=== PATIENT | female | born 1940 | race Caucasian/White ===

== ENCOUNTER 2020-02-27 15:57 | Inpatient (IN) | payer OTHER, MEDICAID, SELFPAY ==
[~2020-02-27] VITALS: Ht 152.4 cm; Wt 42.2 kg
--- NOTE | 2020-02-27 16:01 | NUR ---
Placed in room 06 . Placed on monitoring specialist, blood pressure machine and pulse oximeter. To gown for exam. Side rails up.
--- NOTE | 2020-02-27 16:10 | NUR ---
Pt brought to ER for gen weakness and SOB. Pt unresponsive shortly after arrival ACLS protocol initiated.
[2020-02-27] MEDS ORDERED: NS 500 ML IV ONE (16:15)
--- NOTE | 2020-02-27 16:23 | NUR ---
Patient not known to be of DNR status. Patient medicated with 20 mg of ETOMIDATE AND 20MG ROCURONIUM for sedation prior to placement of ET tube. Respiratory therapy at bedside prior to placement. Size 7.5 ET tube placed by MD. Cuff inflated with 10 cc air. Auscultation of breath sounds over bilateral chest wall. ET tube secured with PLACEMENT DEVICE PER RT. O2 sats 100% pulse ox. PCXR ordered to check tube placement.
[2020-02-27 16:29] VITALS: BP_SYST 62
--- NOTE | 2020-02-27 16:30 | NUR ---
ER at bedside examining patient.
--- NOTE | 2020-02-27 16:30 | NUR ---
Pt in [facility] at this time, sedated and intubated. brought in for weakness and failure to thrive. Pt currently GCS 3 due to sedation, at bedside, pt hypotensive with IV fluids running
[2020-02-27] MEDS ORDERED: DOPamine PREMIX 250 ML IV ONE ×3 (16:47→22:25)
[2020-02-27] MEDS ORDERED: DEXAMETHASONE SOD PHOSPHATE 10 MG/ML VIAL IVP ONE (17:00)
[2020-02-27] MEDS ORDERED: cefTRIAXone 1 GM in D5W 50 ML IV ONE (17:00)
[2020-02-27] MEDS ORDERED: AZITHROMYCIN 500 MG in NS 250 ML IV ONE (17:00)
--- NOTE | 2020-02-27 17:00 | NUR ---
Dopamine began at mcg/kcg will monitor pt and titrate per protocol
--- NOTE | 2020-02-27 17:05 | NUR ---
Dopamine titrateed up to 10mcg/kcg Addendum: 02/28/20 at 0729 by SDEDDW Dopamine titrateed up to 10mcg/kcg, BP 86/44, P 131, O2 100%
[2020-02-27] MEDS ORDERED: cefTRIAXone 1 GM VIAL ONE (17:09)
[2020-02-27] MEDS ORDERED: AZITHROMYCIN 500 MG/VIAL (ZITHROMAX) IV ONE (17:10)
--- NOTE | 2020-02-27 17:10 | NUR ---
Dopamine titrateed up to 15mcg/kcg Addendum: 02/28/20 at 0731 by SDEDDW Dopamine titrated up to 15mcg/kcg BP 70/31, P126, O2 99%
--- NOTE | 2020-02-27 17:15 | NUR ---
Dopamine titrated up to 20mcg/kcg Addendum: 02/28/20 at 0732 by SDEDDW Dopamine titrateed up to 20mcg/kcg BP 93/38, P126, O2 99%
[2020-02-27 17:57] LABS: ANION GAP 14 (5-15); CREATININE 3.64 mg/dL (0.55-1.30); GLUCOSE 257 mg/dL (70-99); MEAN CORPUSCULAR HEMOGLOBIN 31 pg (27-31); MEAN CORPUSCULAR HGB CONC 31 % (32-36); MEAN CORPUSCULAR VOLUME 103 fL (79.0-98.0); PLATELET COUNT (AUTO) 159 K/uL (130-430); RED CELL DISTRIBUTION WIDTH 15.3 % (9.0-15.0); SODIUM SERUM 147 mmol/L (136-145); WHITE BLOOD COUNT (AUTO) 12.1 K/uL (4.8-10.8)
--- NOTE | 2020-02-27 17:58 | NUR ---
Spoke with family, they will be arriving for end of life visitation once daughter is off of work at 1900.
[2020-02-27 18:03] LABS: CHLORIDE 120 mmol/L (98-107); INR 1.2 (0.8-1.2); PROTHROMBIN TIME 12.4 SECS (9.5-12.5)
[2020-02-27 18:07] LABS: CALCIUM 6.9 mg/dL (8.4-11.0); POTASSIUM 6.4 mmol/L (3.5-5.1)
[2020-02-27 18:08] LABS: UREA NITROGEN, BLOOD 102 mg/dL (8-21)
[2020-02-27 18:09] LABS: RED BLOOD CELL COUNT(AUTO) 1.91 MIL/uL (4.2-6.2)
[2020-02-27 18:10] LABS: ALANINE AMINOTRANSFERASE 448 U/L (12-78); ALBUMIN 1.7 g/dL (3.4-4.8); ASPARTATE AMINOTRANSFERASE 759 U/L (10-37); HEMATOCRIT 19.6 % (36-48); LACTATE DEHYDROGENASE 1538 U/L (81-234); TOTAL BILIRUBIN 0.6 mg/dL (0.0-1.0)
[2020-02-27 18:13] LABS: C-REACTIVE PROTEIN QUANT 2.6 mg/dL (0-0.5)
[2020-02-27] MEDS ORDERED: DEXTROSE 50% JECT 50 ML DISP.SYRIN IVP ONE (18:15)
[2020-02-27] MEDS ORDERED: SODIUM ZIRCONIUM CYCLOSILICATE 10 GM POWD.PACK PO ONE (18:15)
[2020-02-27] MEDS ORDERED: INSULIN REGULAR, HUMAN 10 UNITS/0.1 ML INJ IVP ONE (18:15)
[2020-02-27] MEDS ORDERED: SODIUM BICARBONATE 8.4% JECT 50 MEQ/50 ML SYRINGE IVP ONE ×2 (18:15→18:30)
[2020-02-27] MEDS ORDERED: CALCIUM GLUCONATE 1 GM/10 ML VIAL IVP ONE (18:15)
[2020-02-27 18:16] LABS: BAND % (MANUAL) 3 % (0-6); BASOPHILS % (MANUAL) 0 % (0-2); EOSINOPHILS % (MANUAL) 0 % (0-7); LYMPHOCYTES % (MANUAL) 3 % (20-46); MONOCYTES % (MANUAL) 1 % (0-11)
[2020-02-27] MEDS ORDERED: D5NS 1,000 ML IV SCH (18:30)
[2020-02-27] MEDS ORDERED: NOREPINEPHRINE 4 MG/4 ML VIAL IV ONE (18:30)
--- NOTE | 2020-02-27 18:30 | NUR ---
Jaguar hauser in [facility] - 02/27/20 at 1945 by SDEDDW Levophed began at 1mcg/kg will monitor blood pressure and titrate accordingly
--- NOTE | 2020-02-27 18:30 | NUR ---
Levophed began at 0.1mcg/kg will monitor blood pressure and titrate accordingly
[2020-02-27 18:52] LABS: CKMB RELATIVE INDEX 0.6 (0.0-2.9); CREATINE KINASE MB 2.1 ng/mL (0-3.6)
[2020-02-27 19:22] LABS: BILIRUBIN,URINE NEGATIVE (NEGATIVE); BLOOD, URINE 1+ (NEGATIVE); CLARITY/URINE SL CLOUDY (CLEAR); COLOR,URINE YELLOW (YELLOW); GLUCOSE,URINE NEGATIVE (NEGATIVE); KETONES,URINE NEGATIVE (NEGATIVE); LEUKOCYTE ESTERASE ,URINE 2+ (NEGATIVE); NITRITE, URINE NEGATIVE (NEGATIVE); PROTEIN URINE NEGATIVE (NEGATIVE); UROBILINOGEN,URINE 0.2 (0.2-1.0)
[2020-02-27 19:44] LABS: BACTERIA,URINE MODERATE /HPF (None Seen); WBC,URINE 50-80 /HPF (0-3); YEAST,URINE Many /HPF (None Seen)
[2020-02-27 19:45] LABS: MUCUS,URINE None Seen /LPF (None Seen)
--- NOTE | 2020-02-27 19:47 | NUR ---
RECEIVED REPORT FROM SHADI LUDWIG FOR CONTINUATION OF CARE.
--- NOTE | 2020-02-27 19:50 | NUR ---
assumed total care of patient. Dopamine infusing at 20mcg/KG/min per MD order. Levophed infusing at 0.1mcg/kg/min per MD order. vital signs stable. pt on 60% Oxygen on ventilator with O2 sat at 100%.
[2020-02-27] MEDS ORDERED: ACETAMINOPHEN 650 MG SUPP.RECT RC PRN (20:00)
[2020-02-27] MEDS ORDERED: SODIUM POLYSTYRENE SULFONATE 15 GM/60 ML UDBTL GT ONE (20:00)
--- NOTE | 2020-02-27 20:46 | NUR ---
SPOKE WITH DR. SAMUEL TO INFORM HIM OF ABG RESULTS.
--- NOTE | 2020-02-27 20:50 | NUR ---
Note undone in EDM - 02/27/20 at 2302 by JAX assumed total care of patient. Dopamine infusing at 20mcg/KG/min per MD order. Levophed infusing at 0.1mcg/kg/min per MD order. vital signs stable. pt on 60% Oxygen on ventilator with O2 sat at 100%.
--- NOTE | 2020-02-27 20:58 | NUR ---
SPOKE WITH FAMILY REGARDING STATUS OF PATIENT. DAUGHTER SIGNED BLOOD CONSENT FORM PROIR TO ADMINISTRATION OF BLOOD.
[2020-02-27] MEDS: D5/0.45 NS 1,000 ML IV SCH (21:25)
--- NOTE | 2020-02-27 21:40 | NUR ---
confirmed NG tube placement with auscultation and radiology prior to administration of medications. NG tube patent.
--- NOTE | 2020-02-27 21:44 | NUR ---
Dopamine tapered by 2mcg/kg/min per protocol to 18mcg/kg/min. Pts BP 165/84, HR 132, O2 99%.
--- NOTE | 2020-02-27 22:02 | NUR ---
Dopamine tapered by 2mcg/kg/min per protocol to 16mcg/kg/min. Pts BP 150/115, HR 124, O2 100%.
[2020-02-27] MEDS ORDERED: PROPOFOL DRIP 100 ML IV ONE (22:15)
--- NOTE | 2020-02-27 22:17 | NUR ---
Dopamine tapered by 2mcg/kg/min per protocol to 14mcg/kg/min. Pts BP 176/68, HR 121, O2 100%.
--- NOTE | 2020-02-27 22:32 | NUR ---
Dopamine infusion maintained at 14mcg/kg/min. Pts BP 105/68, HR 118, O2 100%.
[2020-02-27] MEDS: PROPOFOL DRIP 100 ML IV PRN (22:36)
--- NOTE | 2020-02-27 22:50 | NUR ---
FAMILY AT BEDSIDE EXCHANGING A FEW HEARTFELT WORDS WITH PATIENT.
--- NOTE | 2020-02-27 22:56 | NUR ---
DR. SAMUEL AT BEDSIDE EVALUATING PATIENT.
--- NOTE | 2020-02-27 23:42 | NUR ---
Dopamine infusing at 14mcg/kg/min per protocol. Propofol infusing at 3mcg/kg/min per md order, patient sedation on rasmey scale is 5. Vital signs stable. Pt BP 114/67, HR 117, O2 sat 100%.
--- NOTE | 2020-02-27 23:42 | NUR ---
Note murtaza in EDM - 02/28/20 at 0032 by JAX Dopamine infusing at 14mcg/kg/min per protocol. Propofol infusing at 3mcg/kg/min per md order. Vital signs stable. Pt BP 114/67, HR 117, O2 sat 100%.
--- NOTE | 2020-02-28 00:08 | NUR ---
LEVOPHED IV CONTINUOUS DRIP @ 0.1MCG/KG/MIN DISCONTINUED PER MD ORDER. PT BP 119/72, HR 123, RR 17, O2 100%. DOPAMINE IV CONTINUOUS DRIP INFUSING AT 14MCG/KG/MIN PER PROTOCOL.
--- NOTE | 2020-02-28 00:12 | NUR ---
Consent signed per daughter of patient agreeing to administration of blood. Blood has been type and crossmatched. Blood sent from blood bank. Information on unit of blood checked against patient wristband at bedside by two nurses. All information matches. Patient or responsible democrat informed of potential complications associated with blood transfusion. Informed of possible transfusion reaction symptoms. Aware of need to notify nurse at once of itching, shortness of breath, flushing, feeling of impending doom, or other symptoms not previously present. Vital signs taken within 5 minutes prior to initiation of transfusion. RN will remain with patient for first 15 minutes of transfusion at which time vital signs will be re-assessed.
--- NOTE | 2020-02-28 00:27 | NUR ---
vital signs take at 15 minute after starting transfusion, no signs of reaction. BP 132/93, HR 116, O2 sat 100%, RR 23, temperature (axillary) 97.1.
--- NOTE | 2020-02-28 01:17 | NUR ---
Dopamine tapered by 2mcg/kg/min per protocol to 12mcg/kg/min. Pts BP 138/84, HR 110, O2 100%.
--- NOTE | 2020-02-28 01:38 | NUR ---
Dopamine tapered by 2mcg/kg/min per protocol to 10mcg/kg/min. Pts BP 151/81, HR 113, O2 100%.
--- NOTE | 2020-02-28 01:44 | NUR ---
patient transferred onto hospital bed with assistance. pt vital signs stable. IVs infusing at prescribed rates. no signs of infiltration.
[2020-02-28] MEDS ORDERED: ACET325T PO (02:10)
[2020-02-28] MEDS ORDERED: VITD2000 PO (02:10)
[2020-02-28] MEDS ORDERED: HAL5 IM (02:10)
[2020-02-28] MEDS ORDERED: FAMO40TA7 PO (02:10)
[2020-02-28] MEDS ORDERED: HYDR-4037 PO (02:10)
[2020-02-28] MEDS ORDERED: ENOX40DI8 SQ (02:10)
[2020-02-28] MEDS ORDERED: THIA50TA10 PO (02:10)
[2020-02-28] MEDS ORDERED: METO50TA7 PO (02:10)
[2020-02-28] MEDS ORDERED: SER25 PO (02:10)
[2020-02-28] MEDS ORDERED: ZINC50TA69 PO (02:10)
[2020-02-28] MEDS ORDERED: MELA10TA PO (02:10)
[2020-02-28] MEDS ORDERED: LACT1CAP69 PO (02:10)
[2020-02-28] MEDS ORDERED: SSNOVOLOG SUBCUT (02:10)
[2020-02-28] MEDS ORDERED: ASCO500T20 PO (02:10)
[2020-02-28] MEDS ORDERED: PRAV20TA PO (02:10)
[2020-02-28] MEDS ORDERED: LEVO175T7 PO (02:10)
[2020-02-28] MEDS ORDERED: GLUC1KIT IM (02:10)
[2020-02-28] MEDS ORDERED: BISA5TAB10 PO (02:10)
--- NOTE | 2020-02-28 02:10 | NUR ---
Medication reconciliation completed BY SHADI EUGENE with information provided by PATIENT FACILITY PAPERWORK. Any prior medication reconciliation on file was reviewed and corrected.
--- NOTE | 2020-02-28 02:27 | NUR ---
Dopamine tapered by 2mcg/kg/min per protocol to 8mcg/kg/min. Pts BP 131/74, HR 102, O2 100%.
--- NOTE | 2020-02-28 02:47 | NUR ---
BLOOD TRANSFUSION COMPLETED. VITAL SIGNS STABLE. BP 126/75, HR 99, RR 16, TEMP 97.5, O2 100%. IV FLUSHED WITH 10CC NORMAL SALINE AND CLAMPED.
--- NOTE | 2020-02-28 03:00 | NUR ---
Blood cultures drawn, prior to administration of antibiotic.
[2020-02-28] MEDS ORDERED: PIPERACILLIN/TAZOBACTAM 2.25 GM VIAL IV ONE (03:01)
--- NOTE | 2020-02-28 03:02 | NUR ---
Dopamine tapered by 2mcg/kg/min per protocol to 6mcg/kg/min. Pts BP 139/81, HR 103, O2 100%.
[2020-02-28] MEDS: PIPERACILLIN/TAZO 2.25G/DEX-IS 50 ML IV SCH ×4 (03:03→22:17)
--- NOTE | 2020-02-28 03:22 | NUR ---
SPOKE WITH CHILD WELFARE SOCIAL WORKER TO NOTIFY THAT A LACTIC ACID BLOOD DRAW WAS ORDERED. CHILD WELFARE SOCIAL WORKER SAID SHE WOULD COME DRAWN 'SOON'.
--- NOTE | 2020-02-28 03:45 | NUR ---
PATIENT TURNED AND PILLOW PLACED UNDER LEFT SIDE TO RELIEVE PRESSURE. WILL CONTINUE TO TURN PATIENT EVERY 2 HOURS.
--- NOTE | 2020-02-28 04:17 | NUR ---
PATIENT VITAL SIGNS STABLE. NO SIGNS OF INFILTRATION AT IV SITE. IV MEDICATIONS INFUSING AT PRESCRIBED RATE. WILL CONTINUE TO MONITOR.
[2020-02-28] MEDS: D5/0.45 NS 1,000 ML IV SCH ×4 (05:01→22:40)
--- NOTE | 2020-02-28 05:04 | NUR ---
TOTAL URINE OUTPUT 500ML. DARK YELLOW URINE NOTED. HOLLOWAY CATHETER URINE BAG BELOW LEVEL OF PATIENT WAIST.
--- NOTE | 2020-02-28 05:30 | NUR ---
CALLED LAB TO COME DRAW 0500 LABS ON PATIENT, COATER OPERATOR SAID SHE CANNOT COME TO DRAW THEM NOW. LAB HAS BEEN NOTIFIED TO DRAW LABS DUE AT 0500.
--- NOTE | 2020-02-28 05:45 | NUR ---
PATIENT TURNED AND PILLOW PLACED UNDER RIGHT SIDE TO RELIEVE PRESSURE. WILL CONTINUE TO TURN PATIENT EVERY 2 HOURS.
--- NOTE | 2020-02-28 06:17 | NUR ---
PATIENT VITAL SIGNS STABLE. NO SIGNS OF INFILTRATION AT IV SITE. IV MEDICATIONS INFUSING AT PRESCRIBED RATE. WILL CONTINUE TO MONITOR.
--- NOTE | 2020-02-28 06:46 | NUR ---
SPOKE WITH LAB TO FOLLOW UP ON BIOINFORMATICIST COMING TO ER TO DRAW 0500 LABS ON PATIENT, GEEK [employer] LEFT WITHOUT DRAWING MORNING LABS. NOW WAITING ON DAY SHIFT BIOINFORMATICIST TO ARRIVE TO DRAW 0500 LABS.
--- NOTE | 2020-02-28 07:18 | NUR ---
report given to SHADI staley for continuation of care.
[2020-02-28] MEDS: NOREPINEPHRINE BITARTRATE 4 MG in NS 246 ML IV SCH (07:35)
[2020-02-28 07:53] LABS: BASOPHILS % (AUTO) 0.1 % (0.0-2.0); HEMATOCRIT 29.9 % (36-48); HEMOGLOBIN 9.3 g/dL (12.0-16.0); LYMPHOCYTES # (AUTO) 0.2 K/uL (1.0-5.5); LYMPHOCYTES % (AUTO) 1.2 % (20.5-51.5); MEAN CORPUSCULAR HEMOGLOBIN 31 pg (27-31); MEAN CORPUSCULAR HGB CONC 31 % (32-36); MEAN CORPUSCULAR VOLUME 98 fL (79.0-98.0); MONOCYTES # (AUTO) 0.2 K/uL (0.0-1.0); MONOCYTES % (AUTO) 1.4 % (1.7-9.3); NEUTROPHILS # (AUTO) 16.4 K/uL (1.8-7.7); NEUTROPHILS % (AUTO) 97.3 % (40.0-70.0); PLATELET COUNT (AUTO) 124 K/uL (130-430); RED BLOOD CELL COUNT(AUTO) 3.05 MIL/uL (4.2-6.2); RED CELL DISTRIBUTION WIDTH 16.5 % (9.0-15.0); WHITE BLOOD COUNT (AUTO) 16.8 K/uL (4.8-10.8)
[2020-02-28 07:58] VITALS: BP_SYST 98
--- NOTE | 2020-02-28 08:21 | NUR ---
Pt resting in [facility] at this time, no distress noted, VSS
[2020-02-28] MEDS ORDERED: ETOMIDATE 20 MG/ 10 ML VIAL (AMIDATE) IVP ONE (08:53)
[2020-02-28] MEDS ORDERED: ROCURONIUM BROMIDE 10 MG/ML (ZEMURON) IV ONE (08:53)
--- NOTE | 2020-02-28 09:12 | NUR ---
PT IS STABLIZED AT THIS TIME. B/P 106/60 ON LEVOPHED DRIP.
[2020-02-28 09:14] VITALS: BP_SYST 106
[2020-02-28 11:02] LABS: ALANINE AMINOTRANSFERASE 442 U/L (12-78); ALBUMIN 1.8 g/dL (3.4-4.8); ANION GAP 13 (5-15); ASPARTATE AMINOTRANSFERASE 638 U/L (10-37); CHLORIDE 115 mmol/L (98-107); PHOSPHORUS 6.4 mg/dL (2.7-4.5); POTASSIUM 4.5 mmol/L (3.5-5.1); SODIUM SERUM 146 mmol/L (136-145); TOTAL BILIRUBIN 0.7 mg/dL (0.0-1.0); UREA NITROGEN, BLOOD 85 mg/dL (8-21)
[2020-02-28 11:07] LABS: CALCIUM 6.8 mg/dL (8.4-11.0)
[2020-02-28 11:20] VITALS: BP_SYST 124
[2020-02-28 11:29] LABS: GLUCOSE 678 mg/dL (70-99)
--- NOTE | 2020-02-28 11:32 | NUR ---
Critical lab glucose 645. Reported to
--- NOTE | 2020-02-28 12:00 | NUR ---
RN CHANGED THE FLUIDS TO NS AND MD CASTANDEA AGREED WHEN HE CAME IN. CHANGE TUBE FEEDING TO GLUCERNA. NO NEW ORDERS FOR SLIDING SCALE. MD CASTANEDA STATED HE WILL PUT IN AND CHANGE ORDERS.
[2020-02-28 13:40] VITALS: BP_SYST 126
--- NOTE | 2020-02-28 13:44 | NUR ---
PT CONTINUES TO BE STABLIZED, NO CHANGE IN ORDERS, VS WNL.
--- NOTE | 2020-02-28 14:53 | NUR ---
GLUCERNA RUNNING NOW AT 25MS/HR. PT CONTINUES TO BE STABLE ON THE MONITOR.
[2020-02-28 15:43] VITALS: BP_SYST 125
--- NOTE | 2020-02-28 15:54 | NUR ---
Dietitian Recommendations * Recommend Glucerna 1.5 at 25 ml/hr via NGT Provides (w/ current propofol infusion): 925 kcal/day, 50 gm protein/day, and 458 ml free water/day Meets: 104% of estimated caloric needs and 92% of lower end of estimated protein needs * Free water flush per physician d/t ARF LP, RD Please refer to Nutrition Assessment for details. Addendum: 02/28/20 at [address] Amended: Links added.
--- NOTE | 2020-02-28 16:19 | NUR ---
LEVOPHED HAS NOT BEEN TITRATED THIS SHIFT. REMAINS AT ORIGINAL DOSE. PT HAS BEEN STABLE AND B/P WNL.
[2020-02-28 17:14] VITALS: BP_SYST 115
[2020-02-28] MEDS ORDERED: DOPamine PREMIX 250 ML IV ONE (17:43)
--- NOTE | 2020-02-28 18:33 | NUR ---
PT WITH LARGE BM, LOOSE STOOLS D/T BEGIN OF TUBE FEEDING. RN OBTAINED 50 CC RESIDUAL. HELD FEEDING FOR NOW. RN AND EMT CLEANED PT COMPLETELY WITH BED BATH AND CHANGE OF LINEN AND GOWN. IV FLUIDS, LEVOPHED, AND PROPOFOL INFUSING ORDERED.
--- NOTE | 2020-02-28 18:35 | NUR ---
HOLLOWAY EMPTIED WITH 4400 CC OF URINE. NOTED
--- NOTE | 2020-02-28 18:39 | NUR ---
RN IS NOTING ONLY ORDERS FOR BS A HIGH LEVEL IS VERBAL ORDER TO CHANGE FLUIDS TO NS, ORDER TO CHANGE FEEDING TO GLUCERNA. MD STATED HE WOULD PUT IN MORE ORDERS. RN IS NOTING A NEW BAG OF DOPAMINE ON ORIGINAL ORDER NOW HUNG AND INFUSING.
--- NOTE | 2020-02-28 18:45 | NUR ---
REPORT GIVEN TO DAUGHTER OVER THE PHONE.
--- NOTE | 2020-02-28 19:21 | NUR ---
BLOOD SUGAR 407. PAGED.
--- NOTE | 2020-02-28 19:30 | NUR ---
Assumed care of patient at change of shift. Introduced self to patient who is awake/alert but intubated w/ vent settings of fio2 50% Peep 10 AC VT 350 AC 16. F/c to gravity w/ clear urine draining. Patient noted to have loose watery stools, (Cleaned w/ soap and water), repositioned for comfort and safety w/ bed to low position sr up. On Dopamine at 3mcg/kg/min, Propofol at 3mcg/kg/min, and NS at 150 ml/hr all to right triple lumen groin, site patent and intact. Patient resting quietly. No acute distress noted. Vital signs within normal range. Continue to monitor level of comfort.
[2020-02-28] MEDS ORDERED: DEXAMETHASONE SOD PHOSPHATE 10 MG/ML VIAL IVP SCH (21:00)
--- NOTE | 2020-02-28 21:30 | NUR ---
Patient resting quietly. No acute distress noted. Vital signs within normal range. No change in vent setting or medications. positioned for comfort and safety w/ bed to low position sr up, continue to monitor.
[2020-02-28] MEDS ORDERED: DEXAMETHASONE SOD PHOSPHATE 10 MG/ML VIAL ONE (22:20)
--- NOTE | 2020-02-28 22:50 | NUR ---
Provider Calling: Brandon Oropeza Reason for Call: Update on patient status and to discontinue isolation. Orders? T.O. To discontinue isolation (Droplet) Comments:Droplet isolation discontinued Does ER need to call back Provider? No
--- NOTE | 2020-02-28 23:43 | NUR ---
Patient resting quietly. No acute distress noted. Vital signs within normal range. Patient to transfer to ICU bed 1 via bed, awaiting RT.
[2020-02-29] VITALS (36 sets, daily range): BP systolic 95–156
--- NOTE | 2020-02-29 00:15 | NUR ---
ICU ADMIT Report given by QUALITY CONTROL EXPERT LORI. Pt is on the vent, tolerating current vent settings. Right femoral central line noted with IVF and Dopamine Drip. Dark purple discoloration noted to right lateral trunk. Leonard catheter in place and draining to gravity. OG tube noted with tubefeeding infusing, no feeding pump attached. Will verify placement. Safety precautions in place, call light within reach. Will continue to monitor.
--- NOTE | 2020-02-29 00:20 | NUR ---
Witness Heena HSU titrate diprivan to 10 mcg/kg/min.
--- NOTE | 2020-02-29 00:25 | NUR ---
DC DOPAMINE DRIP Dopamine drip DC d/t patients HR 90, BP 156/76. Will continue to monitor.
--- NOTE | 2020-02-29 00:30 | NUR ---
Patient will be admitted to care of MD Veras. Admitted to unit. Will go to room . Belongings list completed. Complete and up to date summary report printed. SBAR report to be given at bedside with opportunity for questions. patient uop noted at 600 ml. RT and EMT at bedside, tibco developer placed on patient.
--- NOTE | 2020-02-29 00:35 | NUR ---
Witness Heena HUS titrate diprivan to 15 mcg/kg/min.
--- NOTE | 2020-02-29 00:45 | NUR ---
Received patient with NS infusing at 150ml/hr, no active order entered. Dr. Griffin in unit and order clarified and changed to 1/2 NS @ 120ml/hr. Will carry out order.
--- NOTE | 2020-02-29 00:45 | NUR ---
Witness Heena HSU titrate diprivan to 20 mcg/kg/min.
--- NOTE | 2020-02-29 00:55 | NUR ---
Witness Heena HSU titrate diprivan to 25 mcg/kg/min.
--- NOTE | 2020-02-29 01:00 | NUR ---
Witness Heena HSU titrate diprivan to 30 mcg/kg/min.
--- NOTE | 2020-02-29 01:10 | NUR ---
Witness Heena HSU titrate diprivan to 35 mcg/kg/min.
[2020-02-29] MEDS: 0.45% NACL 1,000 ML IV SCH ×3 (01:40→17:49)
[2020-02-29] MEDS: PROPOFOL DRIP 100 ML IV PRN (04:22)
[2020-02-29] MEDS ORDERED: FLU VACC QS2020-21(65UP)/PF 0.7 ML/SYRINGE I.M. PRN (04:30)
[2020-02-29] MEDS ORDERED: PIPERACILLIN/TAZOBACTAM 2.25 GM VIAL IV ONE (05:16)
[2020-02-29] MEDS: PIPERACILLIN/TAZO 2.25G/DEX-IS 50 ML IV SCH ×5 (06:08→17:46)
--- NOTE | 2020-02-29 07:10 | NUR ---
ENDORSEMENT Pt care endorsed to dayshift RN using nursing SBAR.
--- NOTE | 2020-02-29 07:30 | NUR ---
Received patient and report from [facility] shift nurse. Side rails x 3 up. Call light with in reach. Patient sleeping in bed.
[2020-02-29 07:59] LABS: ALANINE AMINOTRANSFERASE 242 U/L (12-78); ALBUMIN 1.7 g/dL (3.4-4.8); ANION GAP 13 (5-15); ASPARTATE AMINOTRANSFERASE 106 U/L (10-37); CHLORIDE 119 mmol/L (98-107); SODIUM SERUM 150 mmol/L (136-145); TOTAL BILIRUBIN 0.7 mg/dL (0.0-1.0); UREA NITROGEN, BLOOD 64 mg/dL (8-21)
[2020-02-29] MEDS: FAMOTIDINE PF 20 MG/2 ML VIAL IVP SCH ×2 (08:41→20:46)
[2020-02-29] MEDS: methylPREDNISolone SOD SUCC 40 MG/ML VIAL IVP SCH ×2 (08:41→20:46)
[2020-02-29 09:30] LABS: GLUCOSE 409 mg/dL (70-99)
[2020-02-29 09:32] LABS: CALCIUM 6.5 mg/dL (8.4-11.0)
--- NOTE | 2020-02-29 09:50 | NUR ---
Nutrition Update Jeovany Scale 15 noted. Pt admitted for septic shock, respiratory failure, COVID Diet: Glucerna 1.5 at 25ml/hr (goal), Free H20 Flush per physician BMI: 18.2 kg/m2 RD to follow per nutrition care standards.
--- NOTE | 2020-02-29 10:00 | NUR ---
Paged MD Griffin, informed latest ABGs, CBC, CMP. New order to decrease peep to 7, give potassium 40 mEq twice today one time four hours apart, 1 gram of calcium gluconate IV. Orders placed.
--- NOTE | 2020-02-29 10:05 | NUR ---
Also informed MD Griffin blood glucose at 409 on this morning's labs. New order to check blood sugar every 6 hours with regular insulin sliding scale. Orders placed.
[2020-02-29 11:13] LABS: BASOPHILS % (AUTO) 0.3 % (0.0-2.0); HEMOGLOBIN 7.7 g/dL (12.0-16.0); LYMPHOCYTES # (AUTO) 0.3 K/uL (1.0-5.5); MEAN CORPUSCULAR HEMOGLOBIN 30 pg (27-31); MEAN CORPUSCULAR HGB CONC 32 % (32-36); MEAN CORPUSCULAR VOLUME 95 fL (79.0-98.0); MONOCYTES # (AUTO) 0.2 K/uL (0.0-1.0); MONOCYTES % (AUTO) 1.1 % (1.7-9.3); NEUTROPHILS # (AUTO) 13.5 K/uL (1.8-7.7); NEUTROPHILS % (AUTO) 96.6 % (40.0-70.0); PLATELET COUNT (AUTO) 108 K/uL (130-430); RED BLOOD CELL COUNT(AUTO) 2.54 MIL/uL (4.2-6.2); RED CELL DISTRIBUTION WIDTH 16.4 % (9.0-15.0)
[2020-02-29] MEDS ORDERED: DEXTROSE 50%-WATER 50 ML DISP.SYRIN IVP PRN (11:30)
[2020-02-29] MEDS ORDERED: CALCIUM GLUCONATE 1 GM in NS 100 ML IV ONE (11:30)
[2020-02-29] MEDS ORDERED: POTASSIUM CHLORIDE 20 MEQ TAB.PRT.SR PO ONE ×2 (11:30→16:00)
[2020-02-29] MEDS ORDERED: D5W 1,000 ML IV PRN (11:30)
[2020-02-29] MEDS ORDERED: GLUCOSE (DEXTROSE) ORAL GEL -Adults PO PRN (11:30)
--- NOTE | 2020-02-29 11:30 | NUR ---
RT NOTES PEEP to [address] Griffin's order. will monitor pt.
[2020-02-29] MEDS ORDERED: CALCIUM GLUCONATE 1 GM/10 ML VIAL ONE (11:50)
[2020-02-29] MEDS: INSULIN REGULAR, HUMAN 100 UNITS/ML, 10 ML VIAL (humuLIN R) SUBCUT PRN ×2 (12:43→17:48)
--- NOTE | 2020-02-29 16:30 | NUR ---
Md Ha at bedside assessing patient. New order to collect sputum culture, orders placed.
--- NOTE | 2020-02-29 17:30 | NUR ---
MD Dinh assessing patient, new order to increase the tube feeding to 30 cc/hr. Informed Fabrizio heart rate fluctuates between 40 to 70s with sinus rhythm, continue to monitor. Also informed MD Dinh patient attempts to remove intubation and OGT feeding despite redirection and education to patient x 3, new order bilateral wrist restraints. Orders placed.
--- NOTE | 2020-02-29 18:30 | NUR ---
MD Griffin at bedside assessing patient, informed of high sodium on latest lab draw. New order 100 ml every 6 hours water flush. Decrease current IVF to 80 cc/hr.
--- NOTE | 2020-02-29 21:20 | NUR ---
RT NOTES 2119 TITRATED FIO2 TO 30%, PT SATURATION 100%. PT TOLERATING CHANGES WELL. NO RESP DISTRESS NOTED. RN CARL AWARE. WILL CONTINUE TO MONITOR PT.
--- NOTE | 2020-02-29 23:20 | NUR ---
Dropped off PCR testing of nasal swab at lab.
[2020-03-01] VITALS (30 sets, daily range): BP systolic 114–189
[2020-03-01] MEDS: PIPERACILLIN/TAZO 2.25G/DEX-IS 50 ML IV SCH ×5 (00:35→23:09)
[2020-03-01] MEDS: INSULIN REGULAR, HUMAN 100 UNITS/ML, 10 ML VIAL (humuLIN R) SUBCUT PRN ×4 (00:36→17:43)
--- NOTE | 2020-03-01 01:30 | NUR ---
Assumed care of pt. Pt resting, no acute distress on vent. VSS. IV lines running to right femoral triple lumen.
--- NOTE | 2020-03-01 01:30 | NUR ---
Endorsed patient and gave report to [facility] shift nurse. Patient in bed sleeping with side rails x 3 up, call light with in reach.
[2020-03-01] MEDS: PROPOFOL DRIP 100 ML IV PRN (06:18)
[2020-03-01 07:19] LABS: BASOPHILS % (AUTO) 0.1 % (0.0-2.0); HEMATOCRIT 24.2 % (36-48); HEMOGLOBIN 7.9 g/dL (12.0-16.0); LYMPHOCYTES # (AUTO) 0.3 K/uL (1.0-5.5); LYMPHOCYTES % (AUTO) 2.3 % (20.5-51.5); MEAN CORPUSCULAR HEMOGLOBIN 31 pg (27-31); MEAN CORPUSCULAR HGB CONC 33 % (32-36); MEAN CORPUSCULAR VOLUME 94 fL (79.0-98.0); MONOCYTES # (AUTO) 0.2 K/uL (0.0-1.0); MONOCYTES % (AUTO) 1.4 % (1.7-9.3); NEUTROPHILS % (AUTO) 96.2 % (40.0-70.0); PLATELET COUNT (AUTO) 86 K/uL (130-430); RED BLOOD CELL COUNT(AUTO) 2.57 MIL/uL (4.2-6.2); RED CELL DISTRIBUTION WIDTH 16.1 % (9.0-15.0); WHITE BLOOD COUNT (AUTO) 13.6 K/uL (4.8-10.8)
[2020-03-01 07:27] LABS: ALANINE AMINOTRANSFERASE 148 U/L (12-78); ALBUMIN 1.5 g/dL (3.4-4.8); ANION GAP 12 (5-15); ASPARTATE AMINOTRANSFERASE 39 U/L (10-37); CHLORIDE 118 mmol/L (98-107); CREATININE 1.78 mg/dL (0.55-1.30); GLUCOSE 191 mg/dL (70-99); PHOSPHORUS 3.6 mg/dL (2.7-4.5); POTASSIUM 3.4 mmol/L (3.5-5.1); SODIUM SERUM 148 mmol/L (136-145); TOTAL BILIRUBIN 0.7 mg/dL (0.0-1.0); UREA NITROGEN, BLOOD 61 mg/dL (8-21)
--- NOTE | 2020-03-01 07:30 | NUR ---
Opening Note Received report from endorsing RN. Pt sedated, intubated on ventilator FiO2 30%. Able to open eyes to name. Bilateral wrist restraints in place for safety, pulses present, no skin breakdown noted. NGT in place with tube feeding, tolerating well. Leonard in place draining yellow urine to gravity. No acute signs of pain or distress at this time. On diprivan drip at 25 mcg/kg/min and IV fluids going to right femoral TLC.
--- NOTE | 2020-03-01 08:23 | NUR ---
Dr. Dinh returned call, notified regarding pt's blood pressure. New orders made.
[2020-03-01] MEDS: methylPREDNISolone SOD SUCC 40 MG/ML VIAL IVP SCH ×2 (08:35→20:55)
[2020-03-01] MEDS: FAMOTIDINE PF 20 MG/2 ML VIAL IVP SCH ×2 (08:36→20:52)
[2020-03-01] MEDS: 0.45% NACL 1,000 ML IV SCH ×2 (08:45→15:01)
[2020-03-01] MEDS ORDERED: METOPROLOL SUCCINATE 50 MG TAB.SR.24H (TOPROL XL) PO SCH (09:00)
--- NOTE | 2020-03-01 10:00 | NUR ---
Pt noted with moderate amount loose BM. CHG bath and avelina care done.
[2020-03-01] MEDS: METOPROLOL TARTRATE 50 MG TABLET NG SCH ×2 (10:18→20:57)
[2020-03-01] MEDS: FLUCONAZOLE 100 mg/ NS 50 ML IV SCH (11:30)
--- NOTE | 2020-03-01 13:28 | NUR ---
Noted pt in distress, pt placed back in AC mode by RT. Tolerating well.
--- NOTE | 2020-03-01 13:30 | NUR ---
PLACED BACK TO AC16, VT350, PEEP +5, FIO2 30% DUE TO PT SPONTANEOUS VT 45-68ML, LESS THAN 100ML. PT NOT TOLERATED SIMV AT THIS TIME. SHADI HERNANDEZ NOTIFIED.
[2020-03-01] MEDS ORDERED: POTASSIUM CHLORIDE 20 MEQ/PKT PACKET PO ONE (16:30)
--- NOTE | 2020-03-01 17:30 | NUR ---
Facetime call with pt's daughter, updated pt's daughter Ysabel on current condition.
--- NOTE | 2020-03-01 18:40 | NUR ---
Pt noted with large amount BM. Linen change and avelina care done.
--- NOTE | 2020-03-01 19:19 | NUR ---
Endorsed plan of care to RN.
--- NOTE | 2020-03-01 19:20 | NUR ---
Opening note Received report from Lali HSU. Pt observed to be on ventilator AC 16, 350, 5, 30%, with 1/2NS @80, propofol @20 mcg, NAD.
--- NOTE | 2020-03-01 21:48 | NUR ---
MD rounds Dr. Dinh at bedside- updated on patient. VORB to increase TF to 40ml/hr.
[2020-03-02] VITALS (31 sets, daily range): BP systolic 100–146
[2020-03-02] MEDS: INSULIN REGULAR, HUMAN 100 UNITS/ML, 10 ML VIAL (humuLIN R) SUBCUT PRN ×5 (00:22→23:54)
[2020-03-02] MEDS: 0.45% NACL 1,000 ML IV SCH ×2 (01:39→16:01)
[2020-03-02] MEDS: PIPERACILLIN/TAZO 2.25G/DEX-IS 50 ML IV SCH ×4 (05:23→23:16)
[2020-03-02 06:04] LABS: BASOPHILS % (AUTO) 0.3 % (0.0-2.0); EOSINOPHILS % (AUTO) 0.1 % (0.0-4.0); HEMATOCRIT 25.9 % (36-48); HEMOGLOBIN 8.6 g/dL (12.0-16.0); LYMPHOCYTES # (AUTO) 0.3 K/uL (1.0-5.5); LYMPHOCYTES % (AUTO) 2.5 % (20.5-51.5); MEAN CORPUSCULAR HEMOGLOBIN 31 pg (27-31); MEAN CORPUSCULAR HGB CONC 33 % (32-36); MEAN CORPUSCULAR VOLUME 94 fL (79.0-98.0); MONOCYTES # (AUTO) 0.2 K/uL (0.0-1.0); MONOCYTES % (AUTO) 1.7 % (1.7-9.3); NEUTROPHILS # (AUTO) 12.5 K/uL (1.8-7.7); NEUTROPHILS % (AUTO) 95.4 % (40.0-70.0); PLATELET COUNT (AUTO) 104 K/uL (130-430); RED BLOOD CELL COUNT(AUTO) 2.74 MIL/uL (4.2-6.2); RED CELL DISTRIBUTION WIDTH 16.5 % (9.0-15.0); WHITE BLOOD COUNT (AUTO) 13.1 K/uL (4.8-10.8)
[2020-03-02 06:36] LABS: ANION GAP 11 (5-15); CHLORIDE 115 mmol/L (98-107); CREATININE 1.46 mg/dL (0.55-1.30); GLUCOSE 233 mg/dL (70-99); POTASSIUM 4.1 mmol/L (3.5-5.1); SODIUM SERUM 143 mmol/L (136-145); UREA NITROGEN, BLOOD 61 mg/dL (8-21)
[2020-03-02 08:00] LABS: CALCIUM 6.8 mg/dL (8.4-11.0)
[2020-03-02] MEDS: methylPREDNISolone SOD SUCC 40 MG/ML VIAL IVP SCH ×2 (09:02→21:38)
[2020-03-02] MEDS: FAMOTIDINE PF 20 MG/2 ML VIAL IVP SCH ×2 (09:04→21:38)
[2020-03-02] MEDS: METOPROLOL TARTRATE 50 MG TABLET NG SCH ×2 (09:04→21:39)
[2020-03-02] MEDS: PROPOFOL DRIP 100 ML IV PRN ×2 (09:30→21:17)
--- NOTE | 2020-03-02 10:10 | NUR ---
Nutrition F/U RD reviewed pt's current EMR record including diet hx, MD notes, RN notes, pertinent labs/meds/procedures, care trends, and care activity Admitting Diagnosis Septic shock, respiratory failure, COVID Reviewed Pertinent Medical/Surgical Hx Medical Record Other Medical History Comment: PMH: HTN, DM, hypothyroidism, dementia per physician notes Pt also found w/ ARF per physician notes SARS-CoV-2 Ag (Rapid) Negative 02/27 Subjective Information Pt is currently in ICU Bed 01, remains intubated, sedated, on vent per EMR. RD unable to reach pt's RN d/t RN inside isolation room per nsg station. Per RN note, pt previously tolerating TF Glucerna 1.5 at 30 ml/hr, and TF goal rate has been increased to 40 ml/hr this morning per MD. Pt currently infusing propofol at 8.029 ml/hr (212 kcal) and current TF at goal rate provides excessive kcal and protein for pt's needs. Recommend decrease TF Glucerna 1.5 goal rate to 35 ml/hr to avoid providing excess kcal and protein to meet pt's needs. +BM 03/02. Labs reviewed and noted pt's BG, BUN, Cr, and WBC trended down since previous RD assessment. Will continue monitor. Current Diet Order/Nutrition Support Glucerna 1.5at at 40 ml/hr, Free Water Flush: 100ml q6h via NGT x0 days Pertinent Medications propofol at 8.029 ml/hr (212 kcal), [id number], Pepcid, Solumedrol, IV NaCl, Norepinephrine Pertinent Labs Na 143 (improved), BUN 61 H (trending down), CRE 1.46 H (trending down), BG 218 H (trending down and improved), WBC 13.1 H (trending down), Lactic acid 4 H NEW Patient Weight 42.184 kg -- (-) 11 kg in 1 day (02/27-02/28); possibly d/t fluid status vs possible charting error Skin Integrity Comment: Jeovany scale 13. 3 + pitting edema bilateral generalized per rn psychiatric NEW Estimated Energy Expenditure (kcals/day) 1819-3137 kcal/day (25-30 kcal/kg CBW d/t critical illness, vent support, BMI < 30) Estimated Protein Required (g/day) 54-65 gm/day (1-1.2 gm/kg CBW for ARF, sepsis, geriatric status) Estimated Fluid Required (l/day) Per physician d/t ARF Problem/Etiology/Signs/Symptoms Increased nutritional needs related to metabolic demands as evidenced by estimated nutritional requirements for sepsis and acute state. *ongoing Altered nutrition-related labs related to endocrine dysfunction as evidenced by elevated BG lab values. *ongoing, but trending down as of 03/02 Expected Outcomes/Goals - Monitor provision of EN support w/ goal of pt meeting at least 75% of estimated nutritional needs, labs trending WNL, normal GI function, and skin integrity/wt maintenance Dietitian Recommendations * Recommend decrease TF Glucerna 1.5 goal rate to 35 ml/hr via NGT to avoid providing excess kcal and protein Provides (w/ current propofol infusion): 1472 kcal/day, 69 gm protein/day, and 638 ml free water/day Meets: 116% of upper end of estimated caloric needs and 106% of upper end of estimated protein needs * Free water flush per physician d/t ARF Follow Up High Risk: F/U in 2-3days Addendum: 03/02/20 at [address] CORRECTION: RD Notification received 02/29/20 0433 for pt intubated, w/ 2-3# unintentional wt loss last 3 months w/o trying. Pt is currently in ICU Bed 01, remains intubated, sedated, on vent per EMR. FREDA unable to reach pt's RN d/t RN inside isolation room per nsg station. Per RN note, pt previously tolerating TF Glucerna 1.5 at 30 ml/hr, and TF goal rate has been increased to 40 ml/hr this morning per MD. Pt currently infusing propofol at 8.029 ml/hr (212 kcal) and current TF at goal rate provides excessive kcal and protein for pt's needs. Recommend decrease TF Glucerna 1.5 goal rate to 35 ml/hr to avoid providing excess kcal and protein to meet pt's needs. +BM 03/02. Labs reviewed and noted pt's BG, BUN, Cr, and WBC trended down since previous RD assessment. Will continue monitor. EP,RD
--- NOTE | 2020-03-02 10:56 | NUR ---
Dietitian Recommendations * Recommend decrease TF Glucerna 1.5 goal rate to 35 ml/hr via NGT to avoid providing excess kcal and protein Provides (w/ current propofol infusion): 1472 kcal/day, 69 gm protein/day, and 638 ml free water/day Meets: 116% of upper end of estimated caloric needs and 106% of upper end of estimated protein needs * Free water flush per physician d/t ARF Please see Nutrition F/U for details. EP,RD
[2020-03-02] MEDS: FLUCONAZOLE 100 mg/ NS 50 ML IV SCH (11:00)
--- NOTE | 2020-03-02 12:00 | NUR ---
Facetime call with patient's family members. Updates given to daughter Ysabel.
--- NOTE | 2020-03-02 19:17 | NUR ---
Closing Pt in no signs of acute distress or pain at this time. Remains on sedation with diprivan 25 mcg/kg/min. Endorsed plan of care to RN.
--- NOTE | 2020-03-02 19:35 | NUR ---
Opening note Received report and assumed care. Patient in isolation for Covid 19. Vent to ETT present tolerating settings in AC 16 TV 350, FIO2 30% peep 5+. Right femoral central line patent and infusing Diprivan and 1/2 NS. Leonard catheter in place and draining to gravity. Will continue to monitor patient as per unit protocol.
--- NOTE | 2020-03-02 20:10 | NUR ---
Assessment completed and repositioned for comfort. patient tolerated well.
--- NOTE | 2020-03-02 22:00 | NUR ---
Dr Griffin at bedside for assessment. Orders received for RT to continue with trials in SIMV mode in AM. Settings for SIMV rate 14, TV 350, PS 12
[2020-03-03] VITALS (31 sets, daily range): BP systolic 99–143
--- NOTE | 2020-03-03 00:28 | NUR ---
Assessment completed and repositioned for comfort. No signs of distress noted. Patient continue sedated and tolerating Vent settings. Requires occasional suctioning for thick secretions.
[2020-03-03] MEDS: 0.45% NACL 1,000 ML IV SCH (04:31)
[2020-03-03 07:03] LABS: BASOPHILS # (AUTO) 0.1 K/uL (0.0-0.2); BASOPHILS % (AUTO) 0.6 % (0.0-2.0); EOSINOPHILS # (AUTO) 0.1 K/uL (0.0-0.4); HEMATOCRIT 27.8 % (36-48); HEMOGLOBIN 9.1 g/dL (12.0-16.0); LYMPHOCYTES # (AUTO) 0.4 K/uL (1.0-5.5); LYMPHOCYTES % (AUTO) 3.5 % (20.5-51.5); MEAN CORPUSCULAR HEMOGLOBIN 31 pg (27-31); MEAN CORPUSCULAR HGB CONC 33 % (32-36); MEAN CORPUSCULAR VOLUME 96 fL (79.0-98.0); MONOCYTES # (AUTO) 0.3 K/uL (0.0-1.0); MONOCYTES % (AUTO) 2.8 % (1.7-9.3); NEUTROPHILS # (AUTO) 10.3 K/uL (1.8-7.7); NEUTROPHILS % (AUTO) 92.1 % (40.0-70.0); PLATELET COUNT (AUTO) 120 K/uL (130-430); RED CELL DISTRIBUTION WIDTH 17.3 % (9.0-15.0); WHITE BLOOD COUNT (AUTO) 11.2 K/uL (4.8-10.8)
[2020-03-03] MEDS: PIPERACILLIN/TAZO 2.25G/DEX-IS 50 ML IV SCH ×4 (07:09→23:51)
[2020-03-03] MEDS: INSULIN REGULAR, HUMAN 100 UNITS/ML, 10 ML VIAL (humuLIN R) SUBCUT PRN ×3 (07:23→17:30)
--- NOTE | 2020-03-03 07:30 | NUR ---
AM ROUNDS: RECEIVED REPORT FROM NIGHT NURSE JESSICA.PT IS ON MECHANICAL VENT,FIO2=30%,GOOD SATURATION.RIGHT FEMORAL LINE FOR IV FLUIDS,RUNNING WELL.RIGHT NARES FEEDS ON GOING. ON DIPRIVAN DRIP ON GOING. HOLLOWAY DRAINING TO DARK YELLOW URINE. CONTINUE TO MONITOR.
[2020-03-03 07:50] LABS: ANION GAP 10 (5-15); CHLORIDE 114 mmol/L (98-107); CREATININE 1.42 mg/dL (0.55-1.30); GLUCOSE 319 mg/dL (70-99); PHOSPHORUS 3.2 mg/dL (2.7-4.5); POTASSIUM 3.6 mmol/L (3.5-5.1); SODIUM SERUM 141 mmol/L (136-145); UREA NITROGEN, BLOOD 65 mg/dL (8-21)
--- NOTE | 2020-03-03 08:04 | NUR ---
RT NOTES Per dr Griffin's order, vent to SIMV 14 PS 12. No adverse reactions noted. Will monitor pt.
[2020-03-03 08:08] LABS: CALCIUM 6.2 mg/dL (8.4-11.0)
[2020-03-03] MEDS: FAMOTIDINE PF 20 MG/2 ML VIAL IVP SCH ×2 (08:25→20:53)
[2020-03-03] MEDS: methylPREDNISolone SOD SUCC 40 MG/ML VIAL IVP SCH ×2 (08:26→20:53)
[2020-03-03] MEDS: METOPROLOL TARTRATE 50 MG TABLET NG SCH ×2 (08:26→20:59)
[2020-03-03] MEDS: PROPOFOL DRIP 100 ML IV PRN ×2 (09:09→23:51)
--- NOTE | 2020-03-03 09:44 | NUR ---
critical calcium results: Spoke with Dr. Steele with orders give Calcium gluconate 2grams ivpb once for ca+=6.2.
[2020-03-03] MEDS ORDERED: CALCIUM GLUCONATE 2 GM in NS 100 ML IV ONE (11:00)
[2020-03-03] MEDS: FLUCONAZOLE 100 mg/ NS 50 ML IV SCH (11:31)
--- NOTE | 2020-03-03 12:25 | NUR ---
ACCU CHECK NOTES: BLOOD SUGAR TAKEN,WITH INSULIN GIVEN PER SLIDING SCALE. NO ADVERSE REACTIONS NOTED.
--- NOTE | 2020-03-03 15:25 | NUR ---
Wound Evaluation: Wound Consult ordered for Low Jeovany Score. Patient evaluated for a low Jeovany score of 13. Patient was sedated, intubated, and received in a [facility] Bed with an IsoFlex YARELY mattress. Patient needs to be turned in bed. Skin Assessment: 1. Right Lateral Trunk: Large area of dark purple ecchymosis, present on admission. No odor, no drainage. Recommend: No dressings needed. Continue monitor site every shift. Offload area at all times. 2. Left heel: Blanchable redness. 3. Right heel: Blanchable redness. Recommend: Elevate, offload and float bilateral heels with one pillow lengthwise under each extremity at all times. Recommend reposition patient every 2 hours with pillow support. Elevate, offload and float bilateral heels with one pillow lengthwise under each extremity at all times. Offload pressure areas with pillows for pressure re-distribution. Perform skin care and monitor skin integrity Q shift. Use moisture barrier cream on moisture susceptible areas QID and PRN for soiling. Maintain patient on a low air-loss mattress.
--- NOTE | 2020-03-03 17:23 | NUR ---
ACCU CHECK NOTES: BLOOD SUGAR TAKEN,WITH INSULIN GIVEN PER SLIDING SCALE.NO PROBLEM.
--- NOTE | 2020-03-03 18:49 | NUR ---
END OF SHIFT: PATIENT MAINTAINED FIO2=30%,WITH GOOD SATURATION. MAINTAINED TF AT 40CC/H,NO RESIDUALS NOTED. DIPRIVAN AT 25MCG/KG/MIN,COMFORTABLE. HOLLOWAY IN PLACE.STABLE. CONDITION GUARDED.
--- NOTE | 2020-03-03 19:10 | NUR ---
Opening note Received report from amanda HSU. Pt observed to be on ventilator SIMV, 14, 350, peep 5, PS 12, 30%, 1/2 NS @50ml, Propofol @25 mcg, NAD.
[2020-03-04] VITALS (32 sets, daily range): BP systolic 96–125
--- NOTE | 2020-03-04 00:10 | NUR ---
MD Rounds Dr. Griffin at bedside- updated on patient. No new orders.
[2020-03-04] MEDS: 0.45% NACL 1,000 ML IV SCH ×2 (00:25→21:49)
[2020-03-04] MEDS: INSULIN REGULAR, HUMAN 100 UNITS/ML, 10 ML VIAL (humuLIN R) SUBCUT PRN ×4 (00:30→17:55)
--- NOTE | 2020-03-04 01:10 | NUR ---
RT NOTES 0110 TITRATED FIO2 TO 25%, PT SATURATING 95%, TOLERATING WELL. NO RESP DISTRESS NOTED. RN SUSAN AWARE. WILL CONTINUE TO MONITOR PT.
--- NOTE | 2020-03-04 04:45 | NUR ---
RN Rounds pt repositioned, harris/avelina care provided. Central line dressing changed d/t being soiled.
[2020-03-04] MEDS: PIPERACILLIN/TAZO 2.25G/DEX-IS 50 ML IV SCH ×4 (05:26→23:19)
[2020-03-04 06:33] LABS: BASOPHILS % (AUTO) 0.2 % (0.0-2.0); HEMATOCRIT 31.2 % (36-48); HEMOGLOBIN 10.2 g/dL (12.0-16.0); LYMPHOCYTES # (AUTO) 0.4 K/uL (1.0-5.5); LYMPHOCYTES % (AUTO) 4.1 % (20.5-51.5); MEAN CORPUSCULAR HEMOGLOBIN 31 pg (27-31); MEAN CORPUSCULAR HGB CONC 33 % (32-36); MEAN CORPUSCULAR VOLUME 95 fL (79.0-98.0); MONOCYTES # (AUTO) 0.2 K/uL (0.0-1.0); MONOCYTES % (AUTO) 2.8 % (1.7-9.3); NEUTROPHILS # (AUTO) 8.2 K/uL (1.8-7.7); NEUTROPHILS % (AUTO) 92.9 % (40.0-70.0); PLATELET COUNT (AUTO) 110 K/uL (130-430); RED BLOOD CELL COUNT(AUTO) 3.28 MIL/uL (4.2-6.2); RED CELL DISTRIBUTION WIDTH 17.6 % (9.0-15.0); WHITE BLOOD COUNT (AUTO) 8.8 K/uL (4.8-10.8)
[2020-03-04 06:52] LABS: ALANINE AMINOTRANSFERASE 107 U/L (12-78); ALBUMIN 1.3 g/dL (3.4-4.8); ANION GAP 10 (5-15); ASPARTATE AMINOTRANSFERASE 54 U/L (10-37); CHLORIDE 113 mmol/L (98-107); CREATININE 1.43 mg/dL (0.55-1.30); GLUCOSE 322 mg/dL (70-99); POTASSIUM 4.4 mmol/L (3.5-5.1); SODIUM SERUM 139 mmol/L (136-145); TOTAL BILIRUBIN 0.4 mg/dL (0.0-1.0); UREA NITROGEN, BLOOD 71 mg/dL (8-21)
--- NOTE | 2020-03-04 07:20 | NUR ---
Closing note Report given to Melinda HSU.
[2020-03-04 07:26] LABS: CALCIUM 6.5 mg/dL (8.4-11.0)
--- NOTE | 2020-03-04 07:54 | NUR ---
RT NOTES Vent to simv [address] ayala's order. will monitor pt. rn aware.
--- NOTE | 2020-03-04 08:00 | NUR ---
AM ASSESSMENT. PT AFEBRILE, LETHARGIC, ON DIPRIVAN DRIP AT 25 MCG/KG/MIN, VENT MODE SIMV, REPOSITIONED PT IN BED, HAD SOFT BOWEL MOVEMENT, GOOD INCONTINENT CARE PROVIDED, LINEN CHANGED NEEDED.
[2020-03-04] MEDS: FAMOTIDINE PF 20 MG/2 ML VIAL IVP SCH ×2 (10:04→20:41)
[2020-03-04] MEDS: METOPROLOL TARTRATE 50 MG TABLET NG SCH ×2 (10:05→20:43)
[2020-03-04] MEDS: methylPREDNISolone SOD SUCC 40 MG/ML VIAL IVP SCH ×2 (10:05→20:42)
[2020-03-04] MEDS: FLUCONAZOLE 100 mg/ NS 50 ML IV SCH (10:06)
--- NOTE | 2020-03-04 10:48 | NUR ---
ABG. CALLED DR SAMUEL REGARDING ABG RESULT, NEW ORDERS RECEIVED, R.T. MADE AWARE. CALCIUM LEVEL 6.5, DOCTOR LIZZIE AWARE, STATED "DOES NOT NEED TO BE CORRECTED".
--- NOTE | 2020-03-04 11:00 | NUR ---
RT NOTES Vent to simv [address] ayala's order. will monitor pt.
--- NOTE | 2020-03-04 11:00 | NUR ---
RT NOTES VENT CHANGE MADE AT THIS TIME, SIMV 6, NO RESP DISTRESS NTD
--- NOTE | 2020-03-04 11:06 | NUR ---
FAMILY. CALLED UP PT'S DAUGHTER JENNIFER FOR LATEST UPDATE.
[2020-03-04] MEDS: PROPOFOL DRIP 100 ML IV PRN (12:52)
--- NOTE | 2020-03-04 18:25 | NUR ---
NURSING. VITAL SIGNS STABLE, TURNED PT TO HER SIDE, ORAL SUCTIONING DONE. PLACED HEAD OF BED ELEVATED, FEEDING TUBE AT 40 ML PER HR.
--- NOTE | 2020-03-04 19:20 | NUR ---
Opening note Received report from amanda HSU.
--- NOTE | 2020-03-04 21:00 | NUR ---
Family Received call from pt daughter- updated on patient condition, all questions answered.
--- NOTE | 2020-03-04 22:10 | NUR ---
MD Rounds Dr. Griffin at bedside- updated on patient. Dr. Griffin aware of pt third spacing and weeping, decreasing UOP. New orders received for Albumin 25% 100 ml BID x 4 days and Lasix 20 mg IVP BID x 4 days to be administered after Albumin infusion complete.
[2020-03-04] MEDS ORDERED: ALBUMIN HUMAN 25% 100 ML IV ONE (23:08)
[2020-03-04] MEDS: ALBUMIN HUMAN 25% 100 ML IV SCH (23:09)
[2020-03-04] MEDS ORDERED: FUROSEMIDE 20 MG/2 ML VIAL ONE (23:33)
[2020-03-05] VITALS (32 sets, daily range): BP systolic 96–162
[2020-03-05] MEDS: FUROSEMIDE 20 MG/2 ML VIAL IVP SCH ×3 (00:10→22:22)
[2020-03-05] MEDS: INSULIN REGULAR, HUMAN 100 UNITS/ML, 10 ML VIAL (humuLIN R) SUBCUT PRN ×3 (00:25→18:30)
--- NOTE | 2020-03-05 04:00 | NUR ---
RN Rounds Pt resting in bed, avelina/harris care provided. Picture of right thigh blister taken and placed in chart. NAD.
[2020-03-05] MEDS: PIPERACILLIN/TAZO 2.25G/DEX-IS 50 ML IV SCH (05:05)
[2020-03-05 06:38] LABS: ANION GAP 13 (5-15); CHLORIDE 110 mmol/L (98-107); CREATININE 1.63 mg/dL (0.55-1.30); GLUCOSE 299 mg/dL (70-99); POTASSIUM 3.7 mmol/L (3.5-5.1); SODIUM SERUM 139 mmol/L (136-145); UREA NITROGEN, BLOOD 88 mg/dL (8-21)
--- NOTE | 2020-03-05 07:15 | NUR ---
Received patient and endorsed report from [facility] shift nurse. Patient in bed with side rails x 3 up. Call light with in reach.
[2020-03-05 07:36] LABS: HEMATOCRIT 25.4 % (36-48); HEMOGLOBIN 8.3 g/dL (12.0-16.0); MEAN CORPUSCULAR HEMOGLOBIN 31 pg (27-31); MEAN CORPUSCULAR HGB CONC 33 % (32-36); MEAN CORPUSCULAR VOLUME 96 fL (79.0-98.0); PLATELET COUNT (AUTO) 115 K/uL (130-430); RED BLOOD CELL COUNT(AUTO) 2.65 MIL/uL (4.2-6.2); RED CELL DISTRIBUTION WIDTH 18.3 % (9.0-15.0); WHITE BLOOD COUNT (AUTO) 4.1 K/uL (4.8-10.8)
--- NOTE | 2020-03-05 07:37 | NUR ---
Closing note Report given to Joanie HSU. Endorsed new orders for Albumin and Lasix.
--- NOTE | 2020-03-05 08:25 | NUR ---
MD Patricia called, gave update as requested.
[2020-03-05] MEDS: methylPREDNISolone SOD SUCC 40 MG/ML VIAL IVP SCH ×2 (09:14→22:23)
[2020-03-05] MEDS: FAMOTIDINE PF 20 MG/2 ML VIAL IVP SCH ×2 (09:14→22:23)
[2020-03-05] MEDS: METOPROLOL TARTRATE 50 MG TABLET NG SCH ×2 (09:15→22:24)
[2020-03-05] MEDS: ALBUMIN HUMAN 25% 100 ML IV SCH ×2 (09:20→22:19)
[2020-03-05 09:38] LABS: CALCIUM 6.7 mg/dL (8.4-11.0)
--- NOTE | 2020-03-05 10:00 | NUR ---
Reported to MD Griffin latest ABGs and calcium per lab, new order to increase water flushes to 250 every 6 hours, new order of albumin to be drawn. Orders placed.
[2020-03-05] MEDS: FLUCONAZOLE 100 mg/ NS 50 ML IV SCH (10:48)
[2020-03-05] MEDS: LEVOFLOXACIN 250 MG/D5W 50 ML IV SCH (10:48)
--- NOTE | 2020-03-05 13:30 | NUR ---
MD Dinh at bedside assessing patient.
[2020-03-05] MEDS: 0.45% NACL 1,000 ML IV SCH (15:08)
[2020-03-05] MEDS ORDERED: CALCIUM CHLORIDE 1 GM in NS 100 ML IV ONE (17:30)
--- NOTE | 2020-03-05 17:30 | NUR ---
Md Schrader at bedside assessing patient, stated will order 1 gram gluconate for low calcium.
--- NOTE | 2020-03-05 19:35 | NUR ---
OPENING NOTE SBAR REPORT RECEIVED FROM CARL HSU. CARE ASSUMED. PT LAYING IN BED. PT INTUBATED. ETT SIZE 6.0 LIP LINE 19. VENT SETTINGS SIMV 6, TV 350, FIO2 25%, PEEP 5, PS 12. 02 SATURATION 96%. PT SINUS RHYTHM ON MONITOR. RADIAL AND PEDAL PULSES NOTED. WEEPING AND PITTING EDEMA TO BILATERAL UPPER EXTREMITIES. PT HAS CENTRAL LINE TO RIGHT FEMORAL ARTERY RUNNING DIPRIVAN @ 10 MCG/KG/MIN AND 1/2 NS @ 50 ML/HR. ABDOMEN SOFT NON DISTENDED. PT HAS NG TUBE TO LEFT NARE RUNNING GLUCERNA @ 40 ML/HR. BRUISING TO RIGHT SIDE OF BACK NOTED. CALL LIGHT WITHIN REACH. SAFETY PRECAUTIONS IN PLACE. BED LOCKED IN LOWEST POSITION.
[2020-03-05] MEDS: SODIUM BICARBONATE 650 MG TABLET NG SCH (22:24)
[2020-03-05] MEDS ORDERED: ALBUMIN HUMAN 25% 100 ML IV ONE (23:42)
[2020-03-06] VITALS (29 sets, daily range): BP systolic 101–162
[2020-03-06] MEDS: INSULIN REGULAR, HUMAN 100 UNITS/ML, 10 ML VIAL (humuLIN R) SUBCUT PRN ×4 (00:08→17:50)
[2020-03-06 07:01] LABS: BASOPHILS % (AUTO) 0.1 % (0.0-2.0); LYMPHOCYTES # (AUTO) 0.3 K/uL (1.0-5.5); LYMPHOCYTES % (AUTO) 7.9 % (20.5-51.5); MEAN CORPUSCULAR HEMOGLOBIN 31 pg (27-31); MEAN CORPUSCULAR HGB CONC 33 % (32-36); MEAN CORPUSCULAR VOLUME 96 fL (79.0-98.0); MONOCYTES # (AUTO) 0.2 K/uL (0.0-1.0); MONOCYTES % (AUTO) 5.3 % (1.7-9.3); NEUTROPHILS # (AUTO) 3.3 K/uL (1.8-7.7); PLATELET COUNT (AUTO) 111 K/uL (130-430); RED BLOOD CELL COUNT(AUTO) 2.26 MIL/uL (4.2-6.2); RED CELL DISTRIBUTION WIDTH 18.9 % (9.0-15.0); WHITE BLOOD COUNT (AUTO) 3.8 K/uL (4.8-10.8)
--- NOTE | 2020-03-06 07:20 | NUR ---
Received patient and report from [facility] shift nurse. Patient in bed with side rails x 3 up. Call light with in reach.
[2020-03-06 07:37] LABS: ANION GAP 14 (5-15); CALCIUM 7.4 mg/dL (8.4-11.0); CHLORIDE 109 mmol/L (98-107); CREATININE 1.58 mg/dL (0.55-1.30); GLUCOSE 246 mg/dL (70-99); POTASSIUM 3.6 mmol/L (3.5-5.1); SODIUM SERUM 143 mmol/L (136-145); UREA NITROGEN, BLOOD 98 mg/dL (8-21)
[2020-03-06 07:53] LABS: BAND % (MANUAL) 11 % (0-6); BASOPHILS % (MANUAL) 0 % (0-2); EOSINOPHILS % (MANUAL) 0 % (0-7); LYMPHOCYTES % (MANUAL) 10 % (20-46); METAMYELOCYTES % 4 % (0-0); MONOCYTES % (MANUAL) 6 % (0-11)
[2020-03-06 07:54] LABS: CORRECTED WHITE BLOOD COUNT 3.8 K/uL (4.5-11.0)
[2020-03-06 08:30] LABS: HEMATOCRIT 21.7 % (36-48); HEMOGLOBIN 7.1 g/dL (12.0-16.0); NEUTROPHILS % (AUTO) 86.7 % (40.0-70.0)
--- NOTE | 2020-03-06 08:32 | NUR ---
Lab called regarding hgb 7.1, hct 21.7, Gaby KIRAN paged.
--- NOTE | 2020-03-06 08:49 | NUR ---
CLOSING NOTE PT LAYING IN BED. NO SIGNS OR SYMPTOMS OF DISTRESS NOTED. SBAR REPORT GIVEN TO CARL HSU. CARE ENDORSED.
[2020-03-06] MEDS: ALBUMIN HUMAN 25% 100 ML IV SCH (09:00)
[2020-03-06] MEDS: FUROSEMIDE 20 MG/2 ML VIAL IVP SCH ×2 (09:49→21:00)
[2020-03-06] MEDS: FAMOTIDINE PF 20 MG/2 ML VIAL IVP SCH ×2 (09:49→23:30)
[2020-03-06] MEDS: methylPREDNISolone SOD SUCC 40 MG/ML VIAL IVP SCH ×2 (09:49→23:28)
[2020-03-06] MEDS: SODIUM BICARBONATE 650 MG TABLET NG SCH ×4 (09:49→23:29)
[2020-03-06] MEDS: METOPROLOL TARTRATE 50 MG TABLET NG SCH ×2 (09:50→23:30)
[2020-03-06] MEDS: LEVOFLOXACIN 250 MG/D5W 50 ML IV SCH (10:03)
[2020-03-06] MEDS: FLUCONAZOLE 100 mg/ NS 50 ML IV SCH (10:03)
[2020-03-06] MEDS: 0.45% NACL 1,000 ML IV SCH (10:06)
--- NOTE | 2020-03-06 10:11 | NUR ---
Paged MD Schrader regarding hgb 7.1, hct 21.7.
--- NOTE | 2020-03-06 10:15 | NUR ---
MD Schrader called back, reported today's hgb/hct, new order to transfuse 1 unit of blood. Orders placed.
--- NOTE | 2020-03-06 11:06 | NUR ---
MD Griffin called back, reported the ABGs and updated that the patient will recieve 1 unit of blood per MD Schrader due to low hgb/hct. Stated patient can't wean today off vent due to blood transfusion and to keep current CPAP settings.
--- NOTE | 2020-03-06 17:10 | NUR ---
Nutrition F/U RD reviewed pt's current EMR record including diet hx, MD notes, RN notes, pertinent labs/meds/procedures, care trends, and care activity. Admitting Diagnosis Septic shock, respiratory failure, COVID Reviewed Pertinent Medical/Surgical Hx Medical Record Other Medical History Comment: PMH: HTN, DM, hypothyroidism, dementia per physician notes Pt also found w/ ARF per physician notes SARS-CoV-2 Ag (Rapid) Negative 02/27 Subjective Information: RD bedside visit deferred d/t isolation precautions and PPE conservation efforts. RNs were busy at time of RD phone call; unable to retrieve most recent report. Per EMR, pt's wt remains stable since 02/28 (93#). Plans for 1 unit of blood per nursing notes. No documentation of TF intolerance. Per physician orders, Dr. Dinh would like for pt to receiving Glucerna 1.5 at goal of 40 ml/hr; TF Intakes: 160 ml 03/06; GRV: 30 ml 03/06; abd is soft and non-distended w/ active bowel sounds; last BM x2 03/06. Current TF regimen alongside calories provided from current propofol infusion may put pt at risk for overfeeding. Per RN report yesterday, pt has been having diarrhea the past few days. Current Diet Order/Nutrition Support Glucerna 1.5 at at 40 ml/hr, Free Water Flush: 100ml q6h via NGT x4 days Pertinent Medications propofol at 4.8 ml/hr (127 kcal), SSI, lasix, IV ALB, solu-medrol Pertinent Labs BUN 98 L, CRE 1.58 H, BG 246 H, WBC 3.8 L, lactic acid 4 H Skin Integrity Comment: Jeovany scale 13. 3 + pitting edema bilateral generalized per assessment analyst Estimated Energy Expenditure (kcals/day) 6359-0890 kcal/day (25-30 kcal/kg CBW d/t critical illness, vent support, BMI < 30) Estimated Protein Required (g/day) 54-65 gm/day (1-1.2 gm/kg CBW for ARF, sepsis, geriatric status) Estimated Fluid Required (l/day) Per physician d/t ARF Problem/Etiology/Signs/Symptoms Increased nutritional needs related to metabolic demands as evidenced by estimated nutritional requirements for sepsis and acute state. *ongoing Altered nutrition-related labs related to endocrine dysfunction as evidenced by elevated BG lab values. *ongoing Complicated GI function related to compromised GI as evidenced by multiple bouts of diarrhea per nursing report. *new Expected Outcomes/Goals - Monitor provision of EN support w/ goal of pt meeting at least 75% of estimated nutritional needs, labs trending WNL, normal GI function, and skin integrity/wt maintenance Dietitian Recommendations * Recommend Glucerna 1.5 at 35 ml/hr, Banatrol BID via NGT Provides (w/ current propofol infusion): 1387 kcal/day, 69 gm protein/day,and 638 ml free water/day Meets: 110% of upper end of estimated caloric needs and 107% of upper end of estimated * Free water flush per physician d/t ARF Follow Up High Risk: F/U in 2-3 days
--- NOTE | 2020-03-06 17:19 | NUR ---
Dietitian Recommendations * Recommend Glucerna 1.5 at 35 ml/hr, Banatrol BID via NGT Provides (w/ current propofol infusion): 1387 kcal/day, 69 gm protein/day,and 638 ml free water/day Meets: 110% of upper end of estimated caloric needs and 107% of upper end of estimated * Free water flush per physician d/t ARF Please refer to Nutrition F/U for details.
--- NOTE | 2020-03-06 18:50 | NUR ---
BT INITIATION: Consent signed per daughter agreeing to administration of blood via telephone. Blood has been type and crossmatched. Blood sent from blood bank. Information on unit of blood checked against patient wristband at bedside by two nurses. All information matches. Patient or responsible green party informed of potential complications associated with blood transfusion. Informed of possible transfusion reaction symptoms. Aware of need to notify nurse at once of itching, shortness of breath, flushing, feeling of impending doom, or other symptoms not previously present. Vital signs taken within 5 minutes prior to initiation of transfusion. RN will remain with patient for first 15 minutes of transfusion at which time vital signs will be re-assessed.
--- NOTE | 2020-03-06 19:10 | NUR ---
OPENING NOTE SBAR REPORT RECEIVED FROM CARL HSU. CARE ASSUMED. PT LAYING IN BED. PT INTUBATED. ETT SIZE 6.0 LIP LINE 19. VENT SETTINGS CPAP 5 PRESSURE SUPPORT 12. 02 SATURATION 96%. PT SINUS RHYTHM ON MONITOR. RADIAL AND PEDAL PULSES NOTED. WEEPING AND PITTING EDEMA TO BILATERAL UPPER EXTREMITIES. PT HAS CENTRAL LINE TO RIGHT FEMORAL ARTERY RUNNING DIPRIVAN @ 5 MCG/KG/MIN AND 1/2 NS @ 50 ML/HR. ABDOMEN SOFT NON DISTENDED. PT HAS NG TUBE TO LEFT NARE RUNNING GLUCERNA @ 40 ML/HR. BRUISING TO RIGHT SIDE OF BODY FROM HIP TO MID LATERAL CHEST NOTED. CALL LIGHT WITHIN REACH. SAFETY PRECAUTIONS IN PLACE. BED LOCKED IN LOWEST POSITION.
--- NOTE | 2020-03-06 19:35 | NUR ---
Endorsed patient and report to oncoming shift nurse including to finish monitoring patient receiving blood transfusion currently. Patient in bed with side rails x 3 up. Call light with in reach.
[2020-03-07] VITALS (27 sets, daily range): BP systolic 107–151
[2020-03-07 00:25] LABS: HEMATOCRIT 33.1 % (36-48); HEMOGLOBIN 11.1 g/dL (12.0-16.0); MEAN CORPUSCULAR HEMOGLOBIN 30 pg (27-31); MEAN CORPUSCULAR HGB CONC 34 % (32-36); MEAN CORPUSCULAR VOLUME 91 fL (79.0-98.0); PLATELET COUNT (AUTO) 127 K/uL (130-430); RED BLOOD CELL COUNT(AUTO) 3.66 MIL/uL (4.2-6.2); RED CELL DISTRIBUTION WIDTH 17.8 % (9.0-15.0); WHITE BLOOD COUNT (AUTO) 7.6 K/uL (4.8-10.8)
[2020-03-07 00:26] LABS: BASOPHILS % (AUTO) 0.1 % (0.0-2.0); EOSINOPHILS % (AUTO) 0.1 % (0.0-4.0); LYMPHOCYTES # (AUTO) 0.3 K/uL (1.0-5.5); LYMPHOCYTES % (AUTO) 4.1 % (20.5-51.5); MONOCYTES # (AUTO) 0.5 K/uL (0.0-1.0); MONOCYTES % (AUTO) 6.9 % (1.7-9.3); NEUTROPHILS # (AUTO) 6.8 K/uL (1.8-7.7); NEUTROPHILS % (AUTO) 88.8 % (40.0-70.0)
[2020-03-07] MEDS: INSULIN REGULAR, HUMAN 100 UNITS/ML, 10 ML VIAL (humuLIN R) SUBCUT PRN ×3 (00:43→17:45)
[2020-03-07 00:53] LABS: HEMATOCRIT 33.1 % (36-48); HEMOGLOBIN 11.1 g/dL (12.0-16.0)
[2020-03-07] MEDS: 0.45% NACL 1,000 ML IV SCH (07:26)
--- NOTE | 2020-03-07 07:38 | NUR ---
Received patient and endorsed report from [facility] shift nurse. Patient in bed with side rails x 3 up. Call light with in reach.
[2020-03-07 09:32] LABS: ALANINE AMINOTRANSFERASE 117 U/L (12-78); ALBUMIN 2.5 g/dL (3.4-4.8); ANION GAP 18 (5-15); ASPARTATE AMINOTRANSFERASE 62 U/L (10-37); CHLORIDE 108 mmol/L (98-107); CREATININE 1.36 mg/dL (0.55-1.30); GLUCOSE 287 mg/dL (70-99); POTASSIUM 3.7 mmol/L (3.5-5.1); SODIUM SERUM 144 mmol/L (136-145); UREA NITROGEN, BLOOD 93 mg/dL (8-21)
[2020-03-07] MEDS: FAMOTIDINE PF 20 MG/2 ML VIAL IVP SCH ×2 (10:06→22:05)
[2020-03-07] MEDS: SODIUM BICARBONATE 650 MG TABLET NG SCH ×4 (10:06→22:07)
[2020-03-07] MEDS: LEVOFLOXACIN 250 MG/D5W 50 ML IV SCH (10:06)
[2020-03-07] MEDS: methylPREDNISolone SOD SUCC 40 MG/ML VIAL IVP SCH ×2 (10:06→22:05)
[2020-03-07] MEDS: FUROSEMIDE 20 MG/2 ML VIAL IVP SCH ×2 (10:07→21:00)
[2020-03-07] MEDS: METOPROLOL TARTRATE 50 MG TABLET NG SCH ×2 (10:07→22:07)
[2020-03-07] MEDS: FLUCONAZOLE 100 mg/ NS 50 ML IV SCH (11:44)
[2020-03-07] MEDS: INSULIN GLARGINE 100 UNITS/ML 10 ML VIAL SUBCUT SCH (14:30)
--- NOTE | 2020-03-07 15:00 | NUR ---
Informed MD Perez blood sugar ranging in the 200s, new order lantus 15 units daily, orders placed.
--- NOTE | 2020-03-07 17:20 | NUR ---
Informed MD Griffin patient had an episode of large dark greenish thin sticky stool during am shift, new order to collect stool for C.diff and occult blood testing, orders placed.
--- NOTE | 2020-03-07 17:20 | NUR ---
MD Griffin at bedside assessing patient, informed latest ABGs. stated patient will remain intubated today due to recent blood transfusion.
--- NOTE | 2020-03-07 19:35 | NUR ---
Endorsed patient and gave report to NOC shift nurse. Side rails x 3 up. Call light with in reach.
[2020-03-08] VITALS (29 sets, daily range): BP systolic 113–161
[2020-03-08] MEDS: INSULIN REGULAR, HUMAN 100 UNITS/ML, 10 ML VIAL (humuLIN R) SUBCUT PRN ×3 (01:39→13:05)
[2020-03-08 06:43] LABS: BASOPHILS % (AUTO) 0.2 % (0.0-2.0); EOSINOPHILS % (AUTO) 0.2 % (0.0-4.0); HEMATOCRIT 32.5 % (36-48); HEMOGLOBIN 11.2 g/dL (12.0-16.0); LYMPHOCYTES # (AUTO) 0.4 K/uL (1.0-5.5); MEAN CORPUSCULAR HEMOGLOBIN 31 pg (27-31); MEAN CORPUSCULAR HGB CONC 34 % (32-36); MEAN CORPUSCULAR VOLUME 91 fL (79.0-98.0); MONOCYTES # (AUTO) 0.2 K/uL (0.0-1.0); MONOCYTES % (AUTO) 2.4 % (1.7-9.3); NEUTROPHILS # (AUTO) 9.5 K/uL (1.8-7.7); NEUTROPHILS % (AUTO) 93.2 % (40.0-70.0); PLATELET COUNT (AUTO) 186 K/uL (130-430); RED BLOOD CELL COUNT(AUTO) 3.58 MIL/uL (4.2-6.2); RED CELL DISTRIBUTION WIDTH 19.3 % (9.0-15.0); WHITE BLOOD COUNT (AUTO) 10.2 K/uL (4.8-10.8)
--- NOTE | 2020-03-08 07:25 | NUR ---
Received patient and report from [facility] shift nurse. Side rails x 3 up. Call light with in reach.
[2020-03-08 07:44] LABS: ALANINE AMINOTRANSFERASE 81 U/L (12-78); ANION GAP 12 (5-15); ASPARTATE AMINOTRANSFERASE 31 U/L (10-37); CHLORIDE 108 mmol/L (98-107); CREATININE 1.39 mg/dL (0.55-1.30); GLUCOSE 316 mg/dL (70-99); POTASSIUM 3.6 mmol/L (3.5-5.1); SODIUM SERUM 145 mmol/L (136-145); TOTAL BILIRUBIN 0.7 mg/dL (0.0-1.0); UREA NITROGEN, BLOOD 95 mg/dL (8-21)
[2020-03-08] MEDS: SODIUM BICARBONATE 650 MG TABLET NG SCH ×3 (09:00→17:00)
[2020-03-08] MEDS: METOPROLOL TARTRATE 50 MG TABLET NG SCH ×2 (09:00→22:16)
[2020-03-08] MEDS: FUROSEMIDE 20 MG/2 ML VIAL IVP SCH ×2 (09:00→22:15)
[2020-03-08] MEDS: FAMOTIDINE PF 20 MG/2 ML VIAL IVP SCH ×2 (09:00→22:15)
[2020-03-08] MEDS: methylPREDNISolone SOD SUCC 40 MG/ML VIAL IVP SCH ×2 (09:00→22:14)
[2020-03-08] MEDS: INSULIN GLARGINE 100 UNITS/ML 10 ML VIAL SUBCUT SCH (09:00)
[2020-03-08] MEDS: 0.45% NACL 1,000 ML IV SCH ×2 (10:30→22:16)
[2020-03-08] MEDS ORDERED: FUROSEMIDE 20 MG/2 ML VIAL ONE (10:44)
[2020-03-08] MEDS: LEVOFLOXACIN 250 MG/D5W 50 ML IV SCH (10:48)
[2020-03-08] MEDS: FLUCONAZOLE 100 mg/ NS 50 ML IV SCH (10:48)
--- NOTE | 2020-03-08 11:20 | NUR ---
MD Patricia called, updated on patient per request. Informed MD patient has had episodes of loose stools and c.diff and occult blood testing orders already placed by MD Griffin yesterday.MD Patricia ordered to continue to monitor patient, MD will make changes to antibiotic therapy.
[2020-03-08] MEDS: metroNIDAZOLE 250 mg/NS 50 ML IV SCH ×2 (14:00→22:16)
--- NOTE | 2020-03-08 18:10 | NUR ---
MD Schrader at bedside assessing patient.
--- NOTE | 2020-03-08 18:15 | NUR ---
Informed MD Macrina bills order discontinued today per pharmacy, ordered to renew order. Orders placed.
--- NOTE | 2020-03-08 18:30 | NUR ---
MD Griffin at bedside assessing patient, updated on patient's ABG. MD Griffin requested to be called tomorrow in the morning for possible extubation.
[2020-03-08] MEDS ORDERED: SODIUM BICARBONATE 650 MG TABLET ONE (18:46)
--- NOTE | 2020-03-08 19:28 | NUR ---
Endorsed patient and gave report to NOC shift nurse, endorsed to update day shift nurse tomorrow to report morning ABGs for possible extubation. Patient in bed with side rails x 3 up. Call light with in reach.
--- NOTE | 2020-03-08 19:30 | NUR ---
Opening Note Received report from AM nurse using SBAR approach.
[2020-03-08] MEDS ORDERED: PROPOFOL DRIP 100 ML IV PRN (20:15)
[2020-03-09] VITALS (27 sets, daily range): BP systolic 102–147
--- NOTE | 2020-03-09 | NUR ---
Family Called Ysabel, daughter of patient called and asked for update. Provided update for patient and answered all questions.
[2020-03-09] MEDS: metroNIDAZOLE 250 mg/NS 50 ML IV SCH ×3 (06:23→22:06)
[2020-03-09] MEDS: INSULIN REGULAR, HUMAN 100 UNITS/ML, 10 ML VIAL (humuLIN R) SUBCUT PRN ×2 (06:45→12:12)
[2020-03-09 07:15] LABS: HEMOGLOBIN 11.2 g/dL (12.0-16.0); LYMPHOCYTES # (AUTO) 0.3 K/uL (1.0-5.5); LYMPHOCYTES % (AUTO) 2.6 % (20.5-51.5); MEAN CORPUSCULAR HEMOGLOBIN 31 pg (27-31); MEAN CORPUSCULAR HGB CONC 33 % (32-36); MONOCYTES # (AUTO) 0.3 K/uL (0.0-1.0); RED BLOOD CELL COUNT(AUTO) 3.68 MIL/uL (4.2-6.2)
[2020-03-09 07:20] LABS: BASOPHILS % (AUTO) 0.1 % (0.0-2.0); HEMATOCRIT 33.7 % (36-48); MEAN CORPUSCULAR VOLUME 92 fL (79.0-98.0); MONOCYTES % (AUTO) 2.5 % (1.7-9.3); NEUTROPHILS % (AUTO) 94.8 % (40.0-70.0); PLATELET COUNT (AUTO) 202 K/uL (130-430); RED CELL DISTRIBUTION WIDTH 18.6 % (9.0-15.0); WHITE BLOOD COUNT (AUTO) 12.7 K/uL (4.8-10.8)
--- NOTE | 2020-03-09 07:28 | NUR ---
Closing Note Endorsed report to AM nurse using SBAR approach.
--- NOTE | 2020-03-09 07:30 | NUR ---
Opening Note Pt received from night RN using SBAR
[2020-03-09 10:04] LABS: ANION GAP 14 (5-15); CHLORIDE 107 mmol/L (98-107); GLUCOSE 216 mg/dL (70-99); POTASSIUM 3.6 mmol/L (3.5-5.1); SODIUM SERUM 146 mmol/L (136-145)
[2020-03-09 10:06] LABS: ALANINE AMINOTRANSFERASE 81 U/L (12-78); ALBUMIN 1.8 g/dL (3.4-4.8); ASPARTATE AMINOTRANSFERASE 40 U/L (10-37); CALCIUM 6.9 mg/dL (8.4-11.0); CREATININE 1.25 mg/dL (0.55-1.30); TOTAL BILIRUBIN 0.8 mg/dL (0.0-1.0); UREA NITROGEN, BLOOD 88 mg/dL (8-21)
[2020-03-09] MEDS: METOPROLOL TARTRATE 50 MG TABLET NG SCH ×2 (10:26→22:06)
[2020-03-09] MEDS: FAMOTIDINE PF 20 MG/2 ML VIAL IVP SCH ×2 (10:26→22:05)
[2020-03-09] MEDS: methylPREDNISolone SOD SUCC 40 MG/ML VIAL IVP SCH ×2 (10:27→22:05)
[2020-03-09] MEDS: FUROSEMIDE 20 MG/2 ML VIAL IVP SCH (10:27)
[2020-03-09] MEDS: LEVOFLOXACIN 250 MG/D5W 50 ML IV SCH (10:29)
[2020-03-09] MEDS: INSULIN GLARGINE 100 UNITS/ML 10 ML VIAL SUBCUT SCH (10:30)
--- NOTE | 2020-03-09 10:45 | NUR ---
Central Dressing Right Femoral central dressing changed using aseptic technique. Pt tolerated well.
[2020-03-09] MEDS: FLUCONAZOLE 100 mg/ NS 50 ML IV SCH (11:28)
--- NOTE | 2020-03-09 11:30 | NUR ---
RT NOTES Per RN, pt to be extubated around 12 noon.
--- NOTE | 2020-03-09 12:24 | NUR ---
RT NOTES Pt was extubated and placed on 3L Nc per Dr's order. No adverse reactions noted. Will monitor pt.
--- NOTE | 2020-03-09 13:42 | NUR ---
Nutrition F/U RD reviewed pt's current EMR record including diet hx, MD notes, RN notes, pertinent labs/meds/procedures, care trends, and care activity. Admitting Diagnosis Septic shock, respiratory failure, COVID Reviewed Pertinent Medical/Surgical Hx Medical Record Other Medical History Comment: PMH: HTN, DM, hypothyroidism, dementia per physician notes Pt also found w/ ARF per physician notes SARS-CoV-2 Ag (Rapid) Negative 02/27 Subjective Information: RD bedside visit remains deferred d/t isolation precautions and PPE conservation efforts. RD was notified by nsg station via phone that RN is at lunch during time of call. Per EMR, pt now extubated this AM, off sedation, and on 3L NC per MD's orders. MD note reported pt tolerating TF, Glucerna 1.5 at 35 ml/hr w/ 0 ml residuals noted per chart review. Per RN note, C. Diff and occult blood testing orders placed for pt's diarrhea, w/ 5 BMs noted on 03/08 and LBM x1 today. Noted current TF order has banatrol BID to help w/ loose stools. Recommend continue current TF regimen as TF order is adequate and appropriate. Current Diet Order/Nutrition Support Glucerna 1.5 at at 35 ml/hr w/ Banatrol BID, Free Water Flush: 100ml q6h per physician via NGT x2 days Pertinent Medications Lantus, SSI, lasix, solu-medrol, pepcid Pertinent Labs BUN 88 H, CRE 1.25 (improved), BG 216 H (trending down), WBC 12.7 H, lactic acid 4 H Skin Integrity Comment: Jeovany scale 9. 2 + pitting edema bilateral generalized per biomed tech NEW Estimated Energy Expenditure (kcals/day) 4963-0419 kcal/day (25-30 kcal/kg CBW for sepsis, acute state) Estimated Protein Required (g/day) 54-65 gm/day (1-1.2 gm/kg CBW for ARF, sepsis, geriatric status) Estimated Fluid Required (l/day) Per physician d/t ARF Problem/Etiology/Signs/Symptoms Increased nutritional needs related to metabolic demands as evidenced by estimated nutritional requirements for sepsis and acute state. *ongoing Altered nutrition-related labs related to endocrine dysfunction as evidenced by elevated BG lab values. *ongoing Complicated GI function related to compromised GI as evidenced by multiple bouts of diarrhea per nursing report. *ongoing Expected Outcomes/Goals - Monitor tolerance of EN support w/ goal of pt meeting at least 75% of estimated nutritional needs, labs trending WNL, normal GI function, and skin integrity/wt maintenance Dietitian Recommendations * Recommend continue Glucerna 1.5 at 35 ml/hr, Banatrol BID via NGT Provides (w/ current propofol infusion): 1387 kcal/day, 69 gm protein/day,and 638 ml free water/day Meets: 110% of upper end of estimated caloric needs and 107% of upper end of estimated * Free water flush per physician d/t ARF Follow Up High Risk: F/U in 2-3 days
--- NOTE | 2020-03-09 14:04 | NUR ---
Dietitian Recommendations * Recommend continue Glucerna 1.5 at 35 ml/hr, Banatrol BID via NGT Provides (w/ current propofol infusion): 1387 kcal/day, 69 gm protein/day,and 638 ml free water/day Meets: 110% of upper end of estimated caloric needs and 107% of upper end of estimated * Free water flush per physician d/t ARF Please see Nutrition F/U for details. EP,RD
--- NOTE | 2020-03-09 16:16 | NUR ---
Family Spoke to pt's daughter Ysabel and provided update, all questions answered at this time.
[2020-03-09] MEDS: 0.45% NACL 1,000 ML IV SCH (17:20)
--- NOTE | 2020-03-09 19:31 | NUR ---
Closing Notes Pt endorsed to night RN using SBAR
[2020-03-10] VITALS (21 sets, daily range): BP systolic 90–161
--- NOTE | 2020-03-10 03:06 | NUR ---
ASSESSMENT Pt alert/oriented to self only. Pt with O2 @ 2L/min nasal cannula. Right nare with NGT, tube irrigated with air for placement check. Tube with continuous feeding in progress. Occasionally pt will say a word.
[2020-03-10] MEDS: metroNIDAZOLE 250 mg/NS 50 ML IV SCH ×3 (05:53→22:30)
[2020-03-10 06:36] LABS: BASOPHILS % (AUTO) 0.3 % (0.0-2.0); HEMATOCRIT 32.1 % (36-48); HEMOGLOBIN 10.5 g/dL (12.0-16.0); LYMPHOCYTES # (AUTO) 0.3 K/uL (1.0-5.5); MEAN CORPUSCULAR HEMOGLOBIN 31 pg (27-31); MEAN CORPUSCULAR HGB CONC 33 % (32-36); MEAN CORPUSCULAR VOLUME 93 fL (79.0-98.0); MONOCYTES # (AUTO) 0.3 K/uL (0.0-1.0); MONOCYTES % (AUTO) 2.1 % (1.7-9.3); NEUTROPHILS # (AUTO) 14.8 K/uL (1.8-7.7); NEUTROPHILS % (AUTO) 95.6 % (40.0-70.0); PLATELET COUNT (AUTO) 219 K/uL (130-430); RED BLOOD CELL COUNT(AUTO) 3.46 MIL/uL (4.2-6.2); RED CELL DISTRIBUTION WIDTH 19.8 % (9.0-15.0); WHITE BLOOD COUNT (AUTO) 15.5 K/uL (4.8-10.8)
[2020-03-10] MEDS: INSULIN REGULAR, HUMAN 100 UNITS/ML, 10 ML VIAL (humuLIN R) SUBCUT PRN ×3 (06:36→17:19)
[2020-03-10 07:11] LABS: ALANINE AMINOTRANSFERASE 82 U/L (12-78); ALBUMIN 1.7 g/dL (3.4-4.8); ANION GAP 9 (5-15); ASPARTATE AMINOTRANSFERASE 53 U/L (10-37); CHLORIDE 110 mmol/L (98-107); CREATININE 1.24 mg/dL (0.55-1.30); GLUCOSE 134 mg/dL (70-99); SODIUM SERUM 149 mmol/L (136-145); TOTAL BILIRUBIN 0.7 mg/dL (0.0-1.0); UREA NITROGEN, BLOOD 85 mg/dL (8-21)
--- NOTE | 2020-03-10 07:30 | NUR ---
Opening Note Received bedside report from endorsing RN for continuation of care. Received patient awake and resting in bed, no signs or symptoms of acute distress noted. Bed locked in lowest position, bed alarm on, and call light within reach. Fall and safety precautions in place. All needs met.
[2020-03-10] MEDS ORDERED: D5W 1,000 ML IV SCH ×2 (08:15→12:30)
--- NOTE | 2020-03-10 08:17 | NUR ---
Dr. Schrader in to see patient. New orders received.
[2020-03-10] MEDS: methylPREDNISolone SOD SUCC 40 MG/ML VIAL IVP SCH ×2 (08:24→22:27)
[2020-03-10] MEDS: FAMOTIDINE PF 20 MG/2 ML VIAL IVP SCH ×2 (08:24→22:27)
[2020-03-10] MEDS: METOPROLOL TARTRATE 50 MG TABLET NG SCH ×2 (08:25→22:27)
[2020-03-10] MEDS: INSULIN GLARGINE 100 UNITS/ML 10 ML VIAL SUBCUT SCH (08:27)
[2020-03-10] MEDS: FLUCONAZOLE 100 mg/ NS 50 ML IV SCH (11:17)
[2020-03-10] MEDS: LEVOFLOXACIN 250 MG/D5W 50 ML IV SCH (11:18)
--- NOTE | 2020-03-10 12:49 | NUR ---
Family Update Spoke with patient's daughter Ysabel on the phone regarding patient status and plan of care. All questions answered and education provided.
[2020-03-10] MEDS: D5W 1,000 ML IV SCH (14:07)
--- NOTE | 2020-03-10 15:45 | NUR ---
Swallow Evaluation Swallow evaluation being done at bedside.
--- NOTE | 2020-03-10 16:10 | NUR ---
S.T. SWALLOW EVAL SWALLOW EVAL COMPLETED. PT PRESENTS W/ SEV PRE-ORAL, ORAL, AND PHARYNGEAL DYSPHAGIA W/ POOR INTEREST FOR P.O., P.O. REFUSAL, ABSENT BOLUS MANIPULATION, AND ABSENT SWALLOW. PT IS AT HIGH RISK FOR ASPIRATION, MALNUTRITION, AND DEHYDRATION. REC: NPO - ALTERNATIVE METHOD FOR FEEDING. NURSE DONOVAN NOTIFIED.
--- NOTE | 2020-03-10 16:30 | NUR ---
BM Patient had moderate loose liquid BM. Pericare done and bed linens changed. Patient cleaned, turned, repositioned, and suctioned.
--- NOTE | 2020-03-10 18:34 | NUR ---
Closing Note Patient resting in bed, no signs or symptoms of acute distress noted. All needs met. Fall and safety precautions in place. Will endorse bedside report to oncoming RN using SBAR approach for continuation of care.
--- NOTE | 2020-03-10 22:30 | NUR ---
DR MANDEEP Dinh here evaluating pt.
[2020-03-11] VITALS (9 sets, daily range): BP systolic 120–145
[2020-03-11] MEDS: INSULIN REGULAR, HUMAN 100 UNITS/ML, 10 ML VIAL (humuLIN R) SUBCUT PRN ×4 (01:45→18:17)
--- NOTE | 2020-03-11 03:25 | NUR ---
TRANSFER Pt transferred to Telemetry bed 124B via bed.
--- NOTE | 2020-03-11 03:30 | NUR ---
Pt arrived from ICU into Room 124-B via bed. Pt is fully awake and non-verbal. NGT in right nare noted and placement confirmed. NGT residual 5ml. IVF of D5W is infusing well via right femoral central line at 50ml/hr. Leonard Cath to gravity drainage noted with yellowish urine. Fall, droplet isolation and safety precautions are in place.
[2020-03-11] MEDS: metroNIDAZOLE 250 mg/NS 50 ML IV SCH ×3 (06:32→22:00)
[2020-03-11] MEDS: methylPREDNISolone SOD SUCC 40 MG/ML VIAL IVP SCH ×2 (09:55→21:00)
[2020-03-11] MEDS: FAMOTIDINE PF 20 MG/2 ML VIAL IVP SCH ×2 (09:55→21:00)
[2020-03-11] MEDS: METOPROLOL TARTRATE 50 MG TABLET NG SCH ×2 (09:57→21:00)
[2020-03-11] MEDS: D5W 1,000 ML IV SCH (09:57)
[2020-03-11] MEDS: LEVOFLOXACIN 250 MG/D5W 50 ML IV SCH (09:58)
[2020-03-11] MEDS: INSULIN GLARGINE 100 UNITS/ML 10 ML VIAL SUBCUT SCH (10:08)
[2020-03-11 10:31] LABS: ALANINE AMINOTRANSFERASE 89 U/L (12-78); ALBUMIN 1.5 g/dL (3.4-4.8); ANION GAP 10 (5-15); ASPARTATE AMINOTRANSFERASE 43 U/L (10-37); CHLORIDE 107 mmol/L (98-107); CREATININE 1.12 mg/dL (0.55-1.30); GLUCOSE 321 mg/dL (70-99); POTASSIUM 4.3 mmol/L (3.5-5.1); SODIUM SERUM 143 mmol/L (136-145); TOTAL BILIRUBIN 0.6 mg/dL (0.0-1.0); UREA NITROGEN, BLOOD 78 mg/dL (8-21)
[2020-03-11 10:37] LABS: BASOPHILS # (AUTO) 0.1 K/uL (0.0-0.2); BASOPHILS % (AUTO) 0.5 % (0.0-2.0); HEMATOCRIT 32.4 % (36-48); HEMOGLOBIN 10.5 g/dL (12.0-16.0); LYMPHOCYTES # (AUTO) 0.3 K/uL (1.0-5.5); LYMPHOCYTES % (AUTO) 1.5 % (20.5-51.5); MEAN CORPUSCULAR HEMOGLOBIN 30 pg (27-31); MEAN CORPUSCULAR HGB CONC 33 % (32-36); MEAN CORPUSCULAR VOLUME 93 fL (79.0-98.0); MONOCYTES # (AUTO) 0.3 K/uL (0.0-1.0); MONOCYTES % (AUTO) 1.8 % (1.7-9.3); NEUTROPHILS # (AUTO) 15.8 K/uL (1.8-7.7); NEUTROPHILS % (AUTO) 96.2 % (40.0-70.0); PLATELET COUNT (AUTO) 213 K/uL (130-430); RED BLOOD CELL COUNT(AUTO) 3.49 MIL/uL (4.2-6.2); RED CELL DISTRIBUTION WIDTH 19.4 % (9.0-15.0); WHITE BLOOD COUNT (AUTO) 16.5 K/uL (4.8-10.8)
[2020-03-11 10:45] LABS: CALCIUM 6.8 mg/dL (8.4-11.0)
[2020-03-11] MEDS: FLUCONAZOLE 100 mg/ NS 50 ML IV SCH (11:00)
--- NOTE | 2020-03-11 19:55 | NUR ---
INITIAL NOTE AT INITIAL ASSESSMENT, PATIENT IS RESTING IN BED, STABLE, NO SIGNS OF RESPIRATORY DISTRESS. PATIENT SHOWS NO PAIN PER FLACC SCALE. PLAN OF CARE FOR THE EVENING IS COMMUNICATED WITH THE PATIENT. PATIENT IS UNABLE TO DEMONSTRATE CORRECT USAGE OF CALL LIGHT AT THIS TIME DUE TO COGNITIVE IMPAIRMENT; FREQUENT ROUNDING WILL BE COMPLETED THROUGHOUT THE NIGHT TO MEET ALL PATIENT NEEDS. BED IS LOCKED, ALARMED, AND AT THE LOWEST LEVEL. FALL SAFETY EDUCATION PROVIDED. FALL, SAFETY, ISOLATION, ASPIRATION, AND RESPIRATORY PRECAUTIONS WILL BE TAKEN THROUGHOUT THE SHIFT.
[2020-03-12] VITALS: BP_SYST 116
--- NOTE | 2020-03-12 04:30 | NUR ---
HYGIENE CARE NOTE HYGIENE CARE IS PROVIDED AT THIS TIME, FRESH LINENS PROVIDED, AND PATIENT IS REPOSITIONED FOR COMFORT. PATIENT TOLERATED WELL. CALL LIGHT PLACED WITHIN REACH. BED IS LOCKED, ALARMED, AND AT THE LOWEST LEVEL.
[2020-03-12] MEDS: metroNIDAZOLE 250 mg/NS 50 ML IV SCH ×3 (06:00→22:00)
--- NOTE | 2020-03-12 06:30 | NUR ---
CLOSING NOTE NO CHANGES. PATIENT SLEPT WELL THROUGHOUT THE SHIFT, NO SHORTNESS OF BREATH NOTED. AT THIS TIME, PATIENT IS RESTING IN BED, STABLE, NO SIGNS OF RESPIRATORY DISTRESS. CALL LIGHT IS WITHIN REACH. BED IS LOCKED, ALARMED, AND AT THE LOWEST LEVEL. FALL, ASPIRATION, ISOLATION, SAFETY, AND RESPIRATORY PRECAUTIONS HAVE BEEN TAKEN THROUGHOUT THE SHIFT. WILL CONTINUE TO MONITOR UNTIL SHIFT REPORT IS GIVEN AT BEDSIDE TO AM NURSE.
[2020-03-12] MEDS: D5W 1,000 ML IV SCH (06:41)
[2020-03-12 08:00] VITALS: BP_SYST 117
--- NOTE | 2020-03-12 08:00 | NUR ---
OPENING NOTE Patient resting in the bed. No acute distress. On O2 3L/min via NC. HOB elevated above 30 degree. ON NGT feeding of Glucerna 1.5 at 35ml/hr. Skin warm and dry to touch. Central line intact to right femoral, no redness, no swelling, covered with clean and dry dressing. On D5W at 50 ml/hr, infusing well. On isolation. Safety measure maintained. Call light within reached. Bed locked in low position, side rails up, bed alarm on. Will continue to monitor.
[2020-03-12 09:56] LABS: HEMATOCRIT 30.9 % (36-48); LYMPHOCYTES # (AUTO) 0.2 K/uL (1.0-5.5); LYMPHOCYTES % (AUTO) 1.5 % (20.5-51.5); MEAN CORPUSCULAR HEMOGLOBIN 30 pg (27-31); MEAN CORPUSCULAR HGB CONC 32 % (32-36); MEAN CORPUSCULAR VOLUME 93 fL (79.0-98.0); MONOCYTES # (AUTO) 0.3 K/uL (0.0-1.0); MONOCYTES % (AUTO) 1.8 % (1.7-9.3); NEUTROPHILS # (AUTO) 15.8 K/uL (1.8-7.7); NEUTROPHILS % (AUTO) 96.7 % (40.0-70.0); PLATELET COUNT (AUTO) 197 K/uL (130-430); RED BLOOD CELL COUNT(AUTO) 3.31 MIL/uL (4.2-6.2); RED CELL DISTRIBUTION WIDTH 19.1 % (9.0-15.0); WHITE BLOOD COUNT (AUTO) 16.3 K/uL (4.8-10.8)
[2020-03-12 10:15] LABS: ALANINE AMINOTRANSFERASE 95 U/L (12-78); ALBUMIN 1.3 g/dL (3.4-4.8); ANION GAP 9 (5-15); ASPARTATE AMINOTRANSFERASE 42 U/L (10-37); CHLORIDE 109 mmol/L (98-107); CREATININE 1.14 mg/dL (0.55-1.30); GLUCOSE 322 mg/dL (70-99); POTASSIUM 4.5 mmol/L (3.5-5.1); SODIUM SERUM 144 mmol/L (136-145); TOTAL BILIRUBIN 0.4 mg/dL (0.0-1.0); UREA NITROGEN, BLOOD 79 mg/dL (8-21)
[2020-03-12 10:49] LABS: CALCIUM 6.7 mg/dL (8.4-11.0)
[2020-03-12] MEDS: INSULIN GLARGINE 100 UNITS/ML 10 ML VIAL SUBCUT SCH (10:57)
[2020-03-12] MEDS: METOPROLOL TARTRATE 50 MG TABLET NG SCH ×2 (10:58→21:00)
[2020-03-12] MEDS: methylPREDNISolone SOD SUCC 40 MG/ML VIAL IVP SCH ×2 (10:58→21:00)
[2020-03-12] MEDS: FAMOTIDINE PF 20 MG/2 ML VIAL IVP SCH ×2 (10:58→21:00)
[2020-03-12] MEDS: FLUCONAZOLE 100 mg/ NS 50 ML IV SCH (11:32)
[2020-03-12 12:14] VITALS: BP_SYST 121
[2020-03-12] MEDS: LEVOFLOXACIN 250 MG/D5W 50 ML IV SCH (12:34)
--- NOTE | 2020-03-12 13:10 | NUR ---
Nutrition F/U RD reviewed pt's current EMR record including diet hx, MD notes, RN notes, pertinent labs/meds/procedures, care trends, and care activity. Admitting Diagnosis Septic shock, respiratory failure, COVID Medical History Comment: PMH: HTN, DM, hypothyroidism, dementia per physician notes Pt also found w/ ARF per physician notes SARS-CoV-2 Ag (Rapid) Negative 02/27, SARS-CoV-2 (PCR) 02/28 Positive Subjective Information: Transferred from ICU. RD bedside visit remains deferred d/t isolation precautions and PPE conservation efforts. Per unit staff, pts RN is in an isolation room and unavailable for discussion. Per EMR, pt remains on 3L NC, Glucerna 1.5 at 35ml/hr continuing to enfuse with minimal residuals, abd soft and non-distended. Noted pt on Banatrol BID d/t loose BMs. Last BM on 03/11. TF regimen remains adequate/appropriate. Current Diet Order/Nutrition Support Glucerna 1.5 at at 35 ml/hr w/ Banatrol BID, Free Water Flush: 200ml q6h per physician via NGT x2 days Pertinent Medications Lantus, SSI, lasix, solu-medrol, pepcid Pertinent Labs BUN 79 H, CRE 1.14 (improved), BG 322 H (trending up), WBC 16.3 H Skin Integrity Comment: Jeovany scale 9. 2 + pitting edema bilateral generalized per assessment clinician NEW Estimated Energy Expenditure (kcals/day) 3942-9497 kcal/day (25-30 kcal/kg CBW for sepsis, acute state) Estimated Protein Required (g/day) 54-65 gm/day (1-1.2 gm/kg CBW for ARF, sepsis, geriatric status) Estimated Fluid Required (l/day) Per physician d/t ARF Problem/Etiology/Signs/Symptoms Increased nutritional needs related to metabolic demands as evidenced by estimated nutritional requirements for sepsis and acute state. *ongoing Altered nutrition-related labs related to endocrine dysfunction as evidenced by elevated BG lab values. *ongoing Complicated GI function related to compromised GI as evidenced by multiple bouts of diarrhea per nursing report. *ongoing Expected Outcomes/Goals - Monitor tolerance of EN support w/ goal of pt meeting at least 75% of estimated nutritional needs, labs trending WNL, normal GI function, and skin integrity/wt maintenance Dietitian Recommendations * Recommend continue Glucerna 1.5 at 35 ml/hr, Banatrol BID via NGT Provides: 1260 kcal/day, 69 gm protein/day,and 638 ml free water/day Meets: 100% of upper end of estimated caloric needs and 107% of upper end of estimated * Free water flush per physician d/t ARF Follow Up High Risk: F/U in 2-3 days
--- NOTE | 2020-03-12 13:13 | NUR ---
Dietitian Recommendations * Recommend continue Glucerna 1.5 at 35 ml/hr, Banatrol BID via NGT Provides: 1260 kcal/day, 69 gm protein/day,and 638 ml free water/day Meets: 100% of upper end of estimated caloric needs and 107% of upper end of estimated * Free water flush per physician d/t ARF Please see Nutrition F/U for further details. LT, RD
[2020-03-12] MEDS: INSULIN REGULAR, HUMAN 100 UNITS/ML, 10 ML VIAL (humuLIN R) SUBCUT PRN ×2 (13:24→19:05)
--- NOTE | 2020-03-12 13:24 | NUR ---
AW=014 Humulin R insulin 6 units given per sliding scale as ordered. Patient resting in the bed. Continue on O2 3L/min via NC. NGT feeding, tolerated well. HOB elevated above 30 degree. Isolation maintained. Safety measure maintained. Call light within reached. Continue to monitor.
--- NOTE | 2020-03-12 14:00 | NUR ---
SEEN AND EXAMINED BY KEL RAINEY.
[2020-03-12 16:10] VITALS: BP_SYST 132
--- NOTE | 2020-03-12 17:14 | NUR ---
SEEN AND EXAMINED BY LUCERO GONZALEZ.
--- NOTE | 2020-03-12 18:52 | NUR ---
CLOSING NOTE Patient resting in the bed. No acute distress. Continue on O2 3L/min via NC. HOB elevated above 30 degree all the time. Continue on NGT feeding of Glucerna 1.5 at 35ml/hr, tolerated well. Skin warm and dry to touch. Central line intact to right femoral, no redness, no swelling, covered with clean and dry dressing. On D5W at 50 ml/hr, infusing well. Isolation maintained. All needs met. Safety measure maintained. Call light within reached. Bed locked in low position, side rails up, bed alarm on. Will endorse to night nurse.
[2020-03-12 20:00] VITALS: BP_SYST 130
[2020-03-13] MEDS: D5W 1,000 ML IV SCH ×2 (02:22→21:30)
[2020-03-13] MEDS: metroNIDAZOLE 250 mg/NS 50 ML IV SCH ×3 (06:29→22:00)
[2020-03-13] MEDS: INSULIN REGULAR, HUMAN 100 UNITS/ML, 10 ML VIAL (humuLIN R) SUBCUT PRN ×4 (06:30→18:36)
--- NOTE | 2020-03-13 07:45 | NUR ---
OPENING NOTE Patient resting in the bed. No acute distress. On O2 3L/min via NC. HOB elevated above 30 degree. On NGT feeding of Glucerna 1.5 at 35ml/hr. Skin warm and dry to touch. Central line intact to right femoral, no redness, no swelling, covered with clean and dry dressing. On D5W at 50 ml/hr, infusing well. On isolation. F/C intact, drain gravity. Safety measure maintained. Call light within reached. Bed locked in low position, side rails up, bed alarm on. Will continue to monitor.
[2020-03-13 07:50] VITALS: BP_SYST 121
[2020-03-13] MEDS: FAMOTIDINE PF 20 MG/2 ML VIAL IVP SCH ×2 (10:00→21:00)
[2020-03-13] MEDS: methylPREDNISolone SOD SUCC 40 MG/ML VIAL IVP SCH ×2 (10:01→21:00)
[2020-03-13] MEDS: METOPROLOL TARTRATE 50 MG TABLET NG SCH ×2 (10:01→21:00)
[2020-03-13] MEDS: LEVOFLOXACIN 250 MG/D5W 50 ML IV SCH (10:02)
[2020-03-13] MEDS: INSULIN GLARGINE 100 UNITS/ML 10 ML VIAL SUBCUT SCH (10:07)
[2020-03-13] MEDS: FLUCONAZOLE 100 mg/ NS 50 ML IV SCH (11:00)
[2020-03-13 12:00] VITALS: BP_SYST 126
--- NOTE | 2020-03-13 15:05 | NUR ---
SEEN AND EXAMINED BY LUCERO GONZALEZ.
--- NOTE | 2020-03-13 16:00 | NUR ---
SEEN AND EXAMINED BY SONY BOSS.
[2020-03-13 16:10] VITALS: BP_SYST 125
--- NOTE | 2020-03-13 18:58 | NUR ---
CLOSING NOTE Patient resting in the bed. No acute distress. On O2 3L/min via NC. HOB elevated above 30 degree. On NGT feeding of Glucerna 1.5 at 35ml/hr, tolerated well. Skin warm and dry to touch. Central line intact to right femoral, no redness, no swelling, covered with clean and dry dressing. On D5W at 50 ml/hr, infusing well. Isolation maintained. F/C intact, drain gravity. All needs met. Safety measure maintained. Call light within reached. Bed locked in low position, side rails up, bed alarm on. Will endorse to night nurse.
[2020-03-13 19:55] VITALS: BP_SYST 116
--- NOTE | 2020-03-13 20:00 | NUR ---
INITIAL NOTE/ SHORT OF BREATH AT INITIAL ASSESSMENT, PATIENT IS RESTING IN BED, AND SAID "I CAN'T FEEL THE OXYGEN". ON ASSESSMENT, IT WAS FOUND THAT PATIENT ACCIDENTALLY DETACHED TUBING FROM OXYGEN METER TO THE VENTURI MASK, AND ONLY THE MASK REMAINED ON THE PATIENT'S FACE. PATIENT'S OXYGEN SATURATION AT THIS TIME WAS 72%, NON REBREATHER 15L WAS PLACED ON PATIENT TO HELP HER INCREASE HER OXYGEN SATURATION, WILL ATTEMPT TO TITRATE DOWN AGAIN ONCE PATIENT STABILIZES. PATIENT IS REPOSITIONED FOR COMFORT. REMAINED AT BEDSIDE UNTIL PATIENT'S OXYGEN SATURATION STABILIZED. PATIENT VERBALIZES NO PAIN. PLAN OF CARE FOR THE EVENING IS COMMUNICATED WITH THE PATIENT. PATIENT DEMONSTRATES CORRECT USAGE OF CALL LIGHT AT THIS TIME. BED IS LOCKED, ALARMED, AND AT THE LOWEST LEVEL. FALL SAFETY EDUCATION PROVIDED. FALL, SAFETY, ISOLATION, ASPIRATION, AND RESPIRATORY PRECAUTIONS WILL BE TAKEN THROUGHOUT THE SHIFT.
[2020-03-13 20:49] LABS: BASOPHILS % (AUTO) 0.3 % (0.0-2.0); HEMATOCRIT 28.5 % (36-48); HEMOGLOBIN 9.3 g/dL (12.0-16.0); LYMPHOCYTES # (AUTO) 0.3 K/uL (1.0-5.5); LYMPHOCYTES % (AUTO) 1.4 % (20.5-51.5); MEAN CORPUSCULAR HEMOGLOBIN 30 pg (27-31); MEAN CORPUSCULAR HGB CONC 33 % (32-36); MEAN CORPUSCULAR VOLUME 93 fL (79.0-98.0); MONOCYTES # (AUTO) 0.3 K/uL (0.0-1.0); MONOCYTES % (AUTO) 1.8 % (1.7-9.3); NEUTROPHILS # (AUTO) 18.9 K/uL (1.8-7.7); NEUTROPHILS % (AUTO) 96.5 % (40.0-70.0); PLATELET COUNT (AUTO) 178 K/uL (130-430); RED BLOOD CELL COUNT(AUTO) 3.07 MIL/uL (4.2-6.2); RED CELL DISTRIBUTION WIDTH 18.7 % (9.0-15.0); WHITE BLOOD COUNT (AUTO) 19.6 K/uL (4.8-10.8)
[2020-03-13 21:01] LABS: ALANINE AMINOTRANSFERASE 75 U/L (12-78); ALBUMIN 1.3 g/dL (3.4-4.8); ANION GAP 5 (5-15); ASPARTATE AMINOTRANSFERASE 28 U/L (10-37); CHLORIDE 110 mmol/L (98-107); CREATININE 1.04 mg/dL (0.55-1.30); GLUCOSE 249 mg/dL (70-99); PHOSPHORUS 4.2 mg/dL (2.7-4.5); POTASSIUM 4.8 mmol/L (3.5-5.1); SODIUM SERUM 142 mmol/L (136-145); TOTAL BILIRUBIN 0.4 mg/dL (0.0-1.0); UREA NITROGEN, BLOOD 74 mg/dL (8-21)
[2020-03-14] VITALS: BP_SYST 111
[2020-03-14] MEDS: INSULIN REGULAR, HUMAN 100 UNITS/ML, 10 ML VIAL (humuLIN R) SUBCUT PRN ×4 (01:19→18:54)
--- NOTE | 2020-03-14 06:20 | NUR ---
CLOSING NOTE NO CHANGES. PATIENT REMAINED STABLE BUT WITH FLAT AFFECT. PATIENT SLEPT WELL THROUGHOUT THE SHIFT, NO SHORTNESS OF BREATH NOTED. AT THIS TIME, PATIENT IS RESTING IN BED, STABLE, NO SIGNS OF RESPIRATORY DISTRESS. CALL LIGHT IS WITHIN REACH. BED IS LOCKED, ALARMED, AND AT THE LOWEST LEVEL. FALL, ASPIRATION, ISOLATION, SAFETY, AND RESPIRATORY PRECAUTIONS HAVE BEEN TAKEN THROUGHOUT THE SHIFT. WILL CONTINUE TO MONITOR UNTIL SHIFT REPORT IS GIVEN AT BEDSIDE TO AM NURSE.
[2020-03-14] MEDS: metroNIDAZOLE 250 mg/NS 50 ML IV SCH ×3 (06:42→22:00)
--- NOTE | 2020-03-14 06:45 | NUR ---
CLOSING NOTE UNABLE TO TITRATE DOWN FROM NON REBREATHER DURING THE NIGHT DESPITE FOUR ATTEMPTS TO TITRATE, PATIENT ON VENTURI MASK 15L ONLY HAD OXYGEN SATURATION AROUND 88%. PATIENT SLEPT WELL THROUGHOUT THE SHIFT, NO SHORTNESS OF BREATH NOTED. AT THIS TIME, PATIENT IS RESTING IN BED, STABLE, NO SIGNS OF RESPIRATORY DISTRESS. CALL LIGHT IS WITHIN REACH. BED IS LOCKED, ALARMED, AND AT THE LOWEST LEVEL. FALL, ASPIRATION, ISOLATION, SAFETY, AND RESPIRATORY PRECAUTIONS HAVE BEEN TAKEN THROUGHOUT THE SHIFT. WILL CONTINUE TO MONITOR UNTIL SHIFT REPORT IS GIVEN AT BEDSIDE TO AM NURSE. Addendum: 03/14/20 at 0755 by Ketty Rene RN INCORRECT ENTRY. NOTE INTENDED FOR DIFFERENT PATIENT.
[2020-03-14 08:00] VITALS: BP_SYST 118
[2020-03-14 08:43] LABS: BASOPHILS % (AUTO) 0.1 % (0.0-2.0); LYMPHOCYTES # (AUTO) 0.3 K/uL (1.0-5.5); LYMPHOCYTES % (AUTO) 1.7 % (20.5-51.5); MEAN CORPUSCULAR HEMOGLOBIN 30 pg (27-31); MEAN CORPUSCULAR HGB CONC 32 % (32-36); MEAN CORPUSCULAR VOLUME 94 fL (79.0-98.0); MONOCYTES # (AUTO) 0.3 K/uL (0.0-1.0); MONOCYTES % (AUTO) 1.6 % (1.7-9.3); NEUTROPHILS # (AUTO) 20.2 K/uL (1.8-7.7); NEUTROPHILS % (AUTO) 96.6 % (40.0-70.0); PLATELET COUNT (AUTO) 186 K/uL (130-430); RED BLOOD CELL COUNT(AUTO) 3.29 MIL/uL (4.2-6.2); RED CELL DISTRIBUTION WIDTH 19.6 % (9.0-15.0); WHITE BLOOD COUNT (AUTO) 20.9 K/uL (4.8-10.8)
[2020-03-14 09:05] LABS: ALANINE AMINOTRANSFERASE 88 U/L (12-78); ALBUMIN 1.3 g/dL (3.4-4.8); ANION GAP 8 (5-15); CHLORIDE 109 mmol/L (98-107); CREATININE 1.08 mg/dL (0.55-1.30); GLUCOSE 227 mg/dL (70-99); POTASSIUM 5.2 mmol/L (3.5-5.1); SODIUM SERUM 144 mmol/L (136-145); TOTAL BILIRUBIN 0.4 mg/dL (0.0-1.0); UREA NITROGEN, BLOOD 76 mg/dL (8-21)
[2020-03-14 09:48] LABS: ASPARTATE AMINOTRANSFERASE 49 U/L (10-37)
[2020-03-14] MEDS: FAMOTIDINE PF 20 MG/2 ML VIAL IVP SCH ×2 (10:39→21:00)
[2020-03-14] MEDS: methylPREDNISolone SOD SUCC 40 MG/ML VIAL IVP SCH ×2 (10:39→21:00)
[2020-03-14] MEDS: METOPROLOL TARTRATE 50 MG TABLET NG SCH ×2 (10:40→21:00)
[2020-03-14] MEDS: LEVOFLOXACIN 250 MG/D5W 50 ML IV SCH (10:41)
[2020-03-14] MEDS: INSULIN GLARGINE 100 UNITS/ML 10 ML VIAL SUBCUT SCH (10:41)
[2020-03-14 12:13] VITALS: BP_SYST 118
--- NOTE | 2020-03-14 12:39 | NUR ---
RECEIVED THE CALL FROM DANIEL BURGESS TO UPDATE THE PATIEN'S LAB RESULT AND MEDICAL CONDITION. REPORTED WBC=20.9, BS IN 200S. DR. FELICIANO WITH ORDER TO DC D5W AT 50ML/HR AND DC SOLU-MEDROL 40MG IVP, START SOLU-MEDROL 20MG IVP BID TONIGHT. ORDER READ BACK AND OKAY TO DR. FELICIANO.
[2020-03-14] MEDS ORDERED: SODIUM POLYSTYRENE SULFONATE 15 GM/60 ML UDBTL GT ONE (17:00)
--- NOTE | 2020-03-14 18:50 | NUR ---
CLOSING NOTE Patient resting in the bed. No acute distress. Contineu on O2 2L/min via NC. HOB elevated above 30 degree all the time. Continue on NGT feeding of Glucerna 1.5 at 35ml/hr, tolerated well. Central line intact to right femoral, no redness, no swelling, covered with clean and dry dressing. Isolation maintained. F/C intact, drain gravity. All needs met. Safety measure maintained. Call light within reached. Bed locked in low position, side rails up, bed alarm on. Will endorse to night nurse.
--- NOTE | 2020-03-14 18:58 | NUR ---
SEEN AND EXAMINED BY LUCERO GONZALEZ WITH ORDER RECEIVED.
[2020-03-14 20:00] VITALS: BP_SYST 108
--- NOTE | 2020-03-14 23:00 | NUR ---
HYGIENE CARE NOTE COPIOUS BOWEL MOVEMENT. HYGIENE CARE IS PROVIDED AT THIS TIME, FRESH LINENS PROVIDED, AND PATIENT IS REPOSITIONED FOR COMFORT. PATIENT TOLERATED WELL. CALL LIGHT PLACED WITHIN REACH. BED IS LOCKED, ALARMED, AND AT THE LOWEST LEVEL.
[2020-03-15] VITALS: BP_SYST 111
[2020-03-15] MEDS: INSULIN REGULAR, HUMAN 100 UNITS/ML, 10 ML VIAL (humuLIN R) SUBCUT PRN ×2 (01:27→23:00)
[2020-03-15] MEDS: metroNIDAZOLE 250 mg/NS 50 ML IV SCH (05:48)
--- NOTE | 2020-03-15 06:50 | NUR ---
CLOSING NOTE AFTER PUTTING ON UKRAINIAN CHANNEL FOR PATIENT THROUGHOUT THE NIGHT, PATIENT SEEMS MORE ALERT THIS MORNING, SHE IS STARTING TO TRACK NURSE MOVEMENT WITH HER EYES. PATIENT SLEPT WELL THROUGHOUT THE SHIFT, NO SHORTNESS OF BREATH NOTED. AT THIS TIME, PATIENT IS RESTING IN BED, STABLE, NO SIGNS OF RESPIRATORY DISTRESS. CALL LIGHT IS WITHIN REACH. BED IS LOCKED, ALARMED, AND AT THE LOWEST LEVEL. FALL, ASPIRATION, ISOLATION, SAFETY, AND RESPIRATORY PRECAUTIONS HAVE BEEN TAKEN THROUGHOUT THE SHIFT. WILL CONTINUE TO MONITOR UNTIL SHIFT REPORT IS GIVEN AT BEDSIDE TO AM NURSE.
[2020-03-15 06:55] LABS: BASOPHILS # (AUTO) 0.1 K/uL (0.0-0.2); BASOPHILS % (AUTO) 0.3 % (0.0-2.0); EOSINOPHILS % (AUTO) 0.1 % (0.0-4.0); HEMATOCRIT 30.7 % (36-48); HEMOGLOBIN 10.1 g/dL (12.0-16.0); LYMPHOCYTES # (AUTO) 0.4 K/uL (1.0-5.5); LYMPHOCYTES % (AUTO) 1.7 % (20.5-51.5); MEAN CORPUSCULAR HEMOGLOBIN 31 pg (27-31); MEAN CORPUSCULAR HGB CONC 33 % (32-36); MEAN CORPUSCULAR VOLUME 93 fL (79.0-98.0); MONOCYTES # (AUTO) 0.3 K/uL (0.0-1.0); MONOCYTES % (AUTO) 1.4 % (1.7-9.3); NEUTROPHILS # (AUTO) 21.6 K/uL (1.8-7.7); PLATELET COUNT (AUTO) 191 K/uL (130-430); RED BLOOD CELL COUNT(AUTO) 3.29 MIL/uL (4.2-6.2); RED CELL DISTRIBUTION WIDTH 19.1 % (9.0-15.0); WHITE BLOOD COUNT (AUTO) 22.4 K/uL (4.8-10.8)
[2020-03-15 07:11] LABS: ALANINE AMINOTRANSFERASE 89 U/L (12-78); ALBUMIN 1.4 g/dL (3.4-4.8); ANION GAP 9 (5-15); ASPARTATE AMINOTRANSFERASE 42 U/L (10-37); CALCIUM 7.4 mg/dL (8.4-11.0); CHLORIDE 114 mmol/L (98-107); CREATININE 1.14 mg/dL (0.55-1.30); GLUCOSE 94 mg/dL (70-99); SODIUM SERUM 150 mmol/L (136-145); TOTAL BILIRUBIN 0.4 mg/dL (0.0-1.0); UREA NITROGEN, BLOOD 85 mg/dL (8-21)
[2020-03-15 08:00] VITALS: BP_SYST 102
[2020-03-15] MEDS: INSULIN GLARGINE 100 UNITS/ML 10 ML VIAL SUBCUT SCH (11:40)
[2020-03-15] MEDS: FAMOTIDINE PF 20 MG/2 ML VIAL IVP SCH ×2 (11:40→21:00)
[2020-03-15] MEDS: LEVOFLOXACIN 250 MG/D5W 50 ML IV SCH (11:40)
[2020-03-15] MEDS: METOPROLOL TARTRATE 50 MG TABLET NG SCH ×2 (11:40→21:00)
[2020-03-15] MEDS: methylPREDNISolone SOD SUCC 40 MG/ML VIAL IVP SCH (11:40)
[2020-03-15 12:00] VITALS: BP_SYST 97
[2020-03-15] MEDS: D5W 1,000 ML IV SCH (13:00)
--- NOTE | 2020-03-15 14:12 | NUR ---
Nutrition F/U RD reviewed pt's current EMR record including diet hx, MD notes, RN notes, pertinent labs/meds/procedures, care trends, and care activity. Admitting Diagnosis: Septic shock, respiratory failure, COVID Medical History Comment: PMH: HTN, DM, hypothyroidism, dementia per physician notes Pt also found w/ ARF per physician notes SARS-CoV-2 Ag (Rapid) Negative 02/27, SARS-CoV-2 (PCR) 02/28 Positive Subjective Information: Pt is aphasic and w/ severe pre-ora, oral and pharyngeal dysphagia. Pt failed swallow eval on 03/[address] to keep NPO and provide an alternative method of feeding pt. RD s/w RN Rebecca who reported that EN is being tolerated and that pt continues to have episodes of diarrhea. Current EN order remains appropriate and adequate. Current Diet Order/Nutrition Support: Glucerna 1.5 at at 35 ml/hr w/ Banatrol BID, Free Water Flush: 200ml q6h per physician via NGT x5 days Pertinent Medications: Lantus, SSI, lasix, solu-medrol, pepcid Pertinent Labs: 03/15 Na 150H, POC BG 176H Skin Integrity Comment: Jeovany scale15. Per Platform Mill Supervisor note 03/03 - no pressure injury noted. Estimated Energy Expenditure (kcals/day) 7961-3579 kcal/day (25-30 kcal/kg CBW for sepsis, acute state) Estimated Protein Required (g/day) 54-65 gm/day (1-1.2 gm/kg CBW for ARF, sepsis, geriatric status) Estimated Fluid Required (l/day) Per physician d/t ARF Problem/Etiology/Signs/Symptoms Increased nutritional needs related to metabolic demands as evidenced by estimated nutritional requirements for sepsis and acute state. *ongoing Altered nutrition-related labs related to endocrine dysfunction as evidenced by elevated BG lab values. *ongoing Complicated GI function related to compromised GI as evidenced by multiple bouts of diarrhea per nursing report. *ongoing Expected Outcomes/Goals - Monitor tolerance of EN support w/ goal of pt meeting at least 75% of estimated nutritional needs, labs trending WNL, normal GI function, and skin integrity/wt maintenance Dietitian Recommendations * Recommend continue Glucerna 1.5 at 35 ml/hr, Banatrol BID via NGT Provides: 1260 kcal/day, 69 gm protein/day,and 638 ml free water/day Meets: 100% of upper end of estimated caloric needs and 107% of upper end of estimated * Continue free water flush 200ml Q6 Hrs per physician. Follow Up High Risk: F/U in 2-3 days
--- NOTE | 2020-03-15 14:18 | NUR ---
Dietitian Recommendations * Recommend continue Glucerna 1.5 at 35 ml/hr, Banatrol BID via NGT Provides: 1260 kcal/day, 69 gm protein/day,and 638 ml free water/day Meets: 100% of upper end of estimated caloric needs and 107% of upper end of estimated * Continue free water flush 200ml Q6 Hrs per physician. Please see Nutritional Assessment for details LONG-TERM, RD
[2020-03-15 14:27] LABS: NEUTROPHILS % (AUTO) 96.5 % (40.0-70.0)
[2020-03-15 16:00] VITALS: BP_SYST 110
[2020-03-16] MEDS: INSULIN REGULAR, HUMAN 100 UNITS/ML, 10 ML VIAL (humuLIN R) SUBCUT PRN ×2 (07:00→17:58)
[2020-03-16 07:02] LABS: BASOPHILS % (AUTO) 0.2 % (0.0-2.0); HEMATOCRIT 25.5 % (36-48); HEMOGLOBIN 8.4 g/dL (12.0-16.0); LYMPHOCYTES # (AUTO) 0.3 K/uL (1.0-5.5); LYMPHOCYTES % (AUTO) 1.8 % (20.5-51.5); MEAN CORPUSCULAR HEMOGLOBIN 31 pg (27-31); MEAN CORPUSCULAR HGB CONC 33 % (32-36); MEAN CORPUSCULAR VOLUME 94 fL (79.0-98.0); MONOCYTES # (AUTO) 0.3 K/uL (0.0-1.0); MONOCYTES % (AUTO) 1.9 % (1.7-9.3); NEUTROPHILS # (AUTO) 16.3 K/uL (1.8-7.7); NEUTROPHILS % (AUTO) 96.1 % (40.0-70.0); PLATELET COUNT (AUTO) 138 K/uL (130-430); RED BLOOD CELL COUNT(AUTO) 2.73 MIL/uL (4.2-6.2); RED CELL DISTRIBUTION WIDTH 19.6 % (9.0-15.0)
[2020-03-16 07:48] LABS: ALANINE AMINOTRANSFERASE 73 U/L (12-78); ALBUMIN 1.2 g/dL (3.4-4.8); ANION GAP 12 (5-15); ASPARTATE AMINOTRANSFERASE 40 U/L (10-37); CHLORIDE 112 mmol/L (98-107); CREATININE 1.34 mg/dL (0.55-1.30); GLUCOSE 339 mg/dL (70-99); POTASSIUM 4.1 mmol/L (3.5-5.1); SODIUM SERUM 148 mmol/L (136-145); TOTAL BILIRUBIN 0.5 mg/dL (0.0-1.0); UREA NITROGEN, BLOOD 86 mg/dL (8-21)
[2020-03-16 08:00] VITALS: BP_SYST 103
[2020-03-16 08:09] LABS: CALCIUM 7.1 mg/dL (8.4-11.0)
[2020-03-16] MEDS: INSULIN GLARGINE 100 UNITS/ML 10 ML VIAL SUBCUT SCH (10:00)
[2020-03-16] MEDS: METOPROLOL TARTRATE 50 MG TABLET NG SCH ×2 (10:00→21:19)
[2020-03-16] MEDS: FAMOTIDINE PF 20 MG/2 ML VIAL IVP SCH ×2 (10:00→21:19)
[2020-03-16] MEDS: LEVOFLOXACIN 250 MG/D5W 50 ML IV SCH (10:00)
[2020-03-16] MEDS: D5W 1,000 ML IV SCH (10:30)
[2020-03-16 11:04] VITALS: BP_SYST 107
--- NOTE | 2020-03-16 14:14 | NUR ---
SWALLOW ORAL/EVAL LEFT A VOICEMAIL WITH PROFESCCIONAL SPEECH SERVIED THAT THE PATIENT HAS AN ORDER FOR A SWALLOW EVAL.
[2020-03-16 15:28] VITALS: BP_SYST 105
--- NOTE | 2020-03-16 16:02 | NUR ---
DISCHARGE PLANNING Discussed dc planning with Dr Dinh in nsg station. States pt on NGTF, will order swallow eval & PT eval. If fails swallow eval again may need PEG.
[2020-03-16 21:15] VITALS: BP_SYST 132
[2020-03-17] VITALS (8 sets, daily range): BP systolic 74–124
[2020-03-17] MEDS: D5W 1,000 ML IV SCH ×2 (00:41→13:11)
[2020-03-17] MEDS: INSULIN REGULAR, HUMAN 100 UNITS/ML, 10 ML VIAL (humuLIN R) SUBCUT PRN ×3 (04:39→11:56)
--- NOTE | 2020-03-17 06:45 | NUR ---
CLOSING NOTES; pt. went back to sleep. IV site patent. NGT feed continuous. for further care and assistance. kimberly timmons. will endorse to incoming shift.
--- NOTE | 2020-03-17 08:00 | NUR ---
ON 2L. SATURATION IN THE MID 90S%. GTUBE FEEDING, RESIDUAL AND POSITION CHECKED VIA AUSCULTATION CALL LIGHT IN PLACE, BED IS LOCKED, ALARMED, AND AT THE LOWEST LEVEL. FALL SAFETY EDUCATION PROVIDED. FALL, SAFETY, AND RESPIRATORY PRECAUTIONS WILL BE TAKEN THROUGHOUT THE SHIFT.
[2020-03-17 08:55] LABS: ALANINE AMINOTRANSFERASE 79 U/L (12-78); ALBUMIN 1.3 g/dL (3.4-4.8); ANION GAP 9 (5-15); ASPARTATE AMINOTRANSFERASE 50 U/L (10-37); CALCIUM 7.5 mg/dL (8.4-11.0); CHLORIDE 108 mmol/L (98-107); CREATININE 1.07 mg/dL (0.55-1.30); GLUCOSE 145 mg/dL (70-99); POTASSIUM 4.5 mmol/L (3.5-5.1); SODIUM SERUM 144 mmol/L (136-145); TOTAL BILIRUBIN 0.5 mg/dL (0.0-1.0); UREA NITROGEN, BLOOD 82 mg/dL (8-21)
[2020-03-17 09:13] LABS: BASOPHILS % (AUTO) 0.1 % (0.0-2.0); HEMATOCRIT 28.1 % (36-48); HEMOGLOBIN 9.1 g/dL (12.0-16.0); LYMPHOCYTES # (AUTO) 0.6 K/uL (1.0-5.5); LYMPHOCYTES % (AUTO) 3.8 % (20.5-51.5); MEAN CORPUSCULAR HEMOGLOBIN 31 pg (27-31); MEAN CORPUSCULAR HGB CONC 32 % (32-36); MEAN CORPUSCULAR VOLUME 95 fL (79.0-98.0); MONOCYTES # (AUTO) 0.5 K/uL (0.0-1.0); MONOCYTES % (AUTO) 3.2 % (1.7-9.3); NEUTROPHILS # (AUTO) 15.6 K/uL (1.8-7.7); NEUTROPHILS % (AUTO) 92.9 % (40.0-70.0); PLATELET COUNT (AUTO) 141 K/uL (130-430); RED BLOOD CELL COUNT(AUTO) 2.96 MIL/uL (4.2-6.2); RED CELL DISTRIBUTION WIDTH 19.3 % (9.0-15.0); WHITE BLOOD COUNT (AUTO) 16.7 K/uL (4.8-10.8)
[2020-03-17] MEDS: INSULIN GLARGINE 100 UNITS/ML 10 ML VIAL SUBCUT SCH (10:24)
[2020-03-17] MEDS: METOPROLOL TARTRATE 50 MG TABLET NG SCH ×2 (10:25→21:00)
[2020-03-17] MEDS: FAMOTIDINE PF 20 MG/2 ML VIAL IVP SCH ×2 (10:25→22:27)
[2020-03-17] MEDS: LEVOFLOXACIN 250 MG/D5W 50 ML IV SCH (10:26)
--- NOTE | 2020-03-17 15:07 | NUR ---
S.T. SWALLOW EVAL SWALLOW RE-EVAL PERFORMED. PT PRESENTS W/ SEV PRE-ORAL, ORAL, AND PHARYNGEAL DYSPHAGIA W/ DECREASED ALERTNESS, POOR INTEREST FOR P.O., ABSENT BOLUS MANIPULATION, AND ABSENT SWALLOW. PT IS AT HIGH RISK FOR ASPIRATION, MALNUTRITION, AND DEHYDRATION. NO SIGNIFICANT CHANGE FROM PREVIOUS EVAL. REC: NPO - ALTERNATIVE METHOD FOR FEEDING. NURSE DE LA GARZA NOTIFIED.
--- NOTE | 2020-03-17 18:30 | NUR ---
PATIENT IS RESTING IN BED. ON NONREBREATHER MASK 15L, SATURATING AROUND 90S%. SAFETY MEASURES AND ISOLATION MEASURES ARE MAINTAINED. BS 98. NO COVERAGE NEEDED.
[2020-03-17] MEDS ORDERED: NS 500 ML IV ONE (23:30)
[2020-03-18] VITALS (14 sets, daily range): BP systolic 75–122
[2020-03-18] MEDS: D5NS 1,000 ML IV SCH ×3 (00:30→20:34)
[2020-03-18] MEDS: INSULIN REGULAR, HUMAN 100 UNITS/ML, 10 ML VIAL (humuLIN R) SUBCUT PRN ×2 (07:21→19:14)
--- NOTE | 2020-03-18 08:00 | NUR ---
ON 6L. SATURATION IN THE MID 80S%. BP IN THE 80S SBP. NGTUBE FEEDING, RESIDUAL AND POSITION CHECKED VIA AUSCULTATION CALL LIGHT IN PLACE, BED IS LOCKED, ALARMED, AND AT THE LOWEST LEVEL. DR KAUFMAN IS CALLED. FALL SAFETY EDUCATION PROVIDED. FALL, SAFETY, AND RESPIRATORY PRECAUTIONS WILL BE TAKEN THROUGHOUT THE SHIFT.
[2020-03-18 08:30] LABS: BASOPHILS % (AUTO) 0.1 % (0.0-2.0); LYMPHOCYTES # (AUTO) 0.3 K/uL (1.0-5.5); LYMPHOCYTES % (AUTO) 3.7 % (20.5-51.5); MEAN CORPUSCULAR HEMOGLOBIN 32 pg (27-31); MEAN CORPUSCULAR HGB CONC 33 % (32-36); MEAN CORPUSCULAR VOLUME 95 fL (79.0-98.0); MONOCYTES # (AUTO) 0.2 K/uL (0.0-1.0); MONOCYTES % (AUTO) 2.3 % (1.7-9.3); NEUTROPHILS # (AUTO) 6.9 K/uL (1.8-7.7); NEUTROPHILS % (AUTO) 93.9 % (40.0-70.0); PLATELET COUNT (AUTO) 88 K/uL (130-430); RED BLOOD CELL COUNT(AUTO) 2.23 MIL/uL (4.2-6.2); RED CELL DISTRIBUTION WIDTH 19.4 % (9.0-15.0); WHITE BLOOD COUNT (AUTO) 7.4 K/uL (4.8-10.8)
[2020-03-18] MEDS ORDERED: ALBUMIN HUMAN 25% 200 ML IV ONE (08:30)
[2020-03-18 08:34] LABS: ALANINE AMINOTRANSFERASE 63 U/L (12-78); ALBUMIN 0.9 g/dL (3.4-4.8); ANION GAP 12 (5-15); ASPARTATE AMINOTRANSFERASE 41 U/L (10-37); CHLORIDE 108 mmol/L (98-107); CREATININE 1.25 mg/dL (0.55-1.30); GLUCOSE 339 mg/dL (70-99); POTASSIUM 4.6 mmol/L (3.5-5.1); SODIUM SERUM 142 mmol/L (136-145); TOTAL BILIRUBIN 0.4 mg/dL (0.0-1.0); UREA NITROGEN, BLOOD 80 mg/dL (8-21)
[2020-03-18] MEDS: INSULIN GLARGINE 100 UNITS/ML 10 ML VIAL SUBCUT SCH (09:00)
[2020-03-18] MEDS: METOPROLOL TARTRATE 50 MG TABLET NG SCH ×2 (09:00→21:00)
[2020-03-18] MEDS: FAMOTIDINE PF 20 MG/2 ML VIAL IVP SCH ×2 (09:00→20:34)
[2020-03-18 09:10] LABS: HEMATOCRIT 21.2 % (36-48)
[2020-03-18 09:26] LABS: CALCIUM 6.3 mg/dL (8.4-11.0)
--- NOTE | 2020-03-18 09:40 | NUR ---
DR. KAUFMAN CALLS BACK AND GAVE ORDERS FOR ALBUMIN.
--- NOTE | 2020-03-18 11:35 | NUR ---
RAPID RESPONSE AND CODE BLUE CALLED. PERFORMED CPR AND BAGGED PT VIA AMBU MASK WITH 15LPM. [address] BY ER DR HIGGINBOTHAM. ETT 7.08/06 AT LIP LINE. ETT SECURED WITH TAPE. CO2 DETECTOR CHANGED COLOR YELLOW AND BILATERAL BREATH SOUND NOTICED. 1145 PT ON VENT SETTINGS WITH AC18, VT 450, PEEP +5, FIO2 100%. VENT TO RED OUTLET AND ALARMS ARE AUDIBLE.
--- NOTE | 2020-03-18 11:40 | NUR ---
PATIENT WAS FOUND UNRESPONSIVE AND PALE. SBP AT 50S. CODE BLUE IS CALLED. RESUSCITATION WAS SUCCESSFUL AND PATIENT TO BE MOVED TO ICU.
--- NOTE | 2020-03-18 12:23 | NUR ---
PHYSICAL THERAPY TREATMENT HELD TODAY DUE TO THE PATIENT'S MEDICAL STATUS.
[2020-03-18] MEDS ORDERED: SODIUM BICARBONATE 8.4% JECT 50 MEQ/50 ML SYRINGE IVP ONE (14:00)
--- NOTE | 2020-03-18 14:04 | NUR ---
PAGED DIALED: [phone] SAMUEL,REGARDING PT STATUS WITH ABG RESULTS
[2020-03-18] MEDS ORDERED: SODIUM BICARBONATE 8.4% JECT 50 MEQ/50 ML SYRINGE ONE (14:05)
[2020-03-18] MEDS ORDERED: PHENYLEPHRINE HCL 50 MG in NS 245 ML IV PRN (16:00)
[2020-03-18] MEDS ORDERED: NOREPINEPHRINE 4 MG/4 ML VIAL IV ONE ×3 (17:37→21:35)
--- NOTE | 2020-03-18 20:15 | NUR ---
PM SHIFT ASSESSMENT Pt is on the vent, unable to make needs known. SR on the monitor. Skin warm and dry. IVF infusing to Right femoral central line. Leonard catheter in place and draining to gravity. Safety precautions in place, call light within reach. Will continue to monitor.
[2020-03-18] MEDS: NOREPINEPHRINE BITARTRATE 4 MG in NS 246 ML IV SCH ×2 (20:21→23:40)
--- NOTE | 2020-03-18 23:25 | NUR ---
DR. SAMUEL HERE TO SEE PATIENT.
[2020-03-19] VITALS (21 sets, daily range): BP systolic 60–120
[2020-03-19] MEDS ORDERED: NOREPINEPHRINE 4 MG/4 ML VIAL IV ONE ×2 (00:31→07:41)
[2020-03-19] MEDS: INSULIN REGULAR, HUMAN 100 UNITS/ML, 10 ML VIAL (humuLIN R) SUBCUT PRN ×2 (00:52→05:43)
[2020-03-19] MEDS: NOREPINEPHRINE BITARTRATE 4 MG in NS 246 ML IV SCH ×2 (02:59→08:10)
[2020-03-19] MEDS: D5NS 1,000 ML IV SCH ×3 (03:02→17:10)
[2020-03-19] MEDS ORDERED: metroNIDAZOLE 500 mg/NS 100 ML IV ONE (04:13)
[2020-03-19] MEDS: metroNIDAZOLE 500 mg/NS 100 ML IV SCH ×2 (05:26→14:17)
--- NOTE | 2020-03-19 07:15 | NUR ---
ENDORSEMENT Pt care endorsed to dayshift RN using nursing SBAR.
--- NOTE | 2020-03-19 07:30 | NUR ---
Received patient and report from third shift lieutenant nurse. Side rails x 3 up. Call light with in reach.
[2020-03-19 07:38] LABS: TOTAL IRON BIND. CAPACITY 44 ug/dL (250-450)
[2020-03-19 07:47] LABS: ALBUMIN 1.2 g/dL (3.4-4.8); ANION GAP 14 (5-15); CHLORIDE 118 mmol/L (98-107); CREATININE 1.09 mg/dL (0.55-1.30); GLUCOSE 206 mg/dL (70-99); POTASSIUM 3.3 mmol/L (3.5-5.1); SODIUM SERUM 153 mmol/L (136-145); UREA NITROGEN, BLOOD 73 mg/dL (8-21)
[2020-03-19 08:03] LABS: CALCIUM 5.9 mg/dL (8.4-11.0)
[2020-03-19 08:04] LABS: ALANINE AMINOTRANSFERASE 528 U/L (12-78); ASPARTATE AMINOTRANSFERASE 726 U/L (10-37); TOTAL BILIRUBIN 0.8 mg/dL (0.0-1.0)
[2020-03-19] MEDS: METOPROLOL TARTRATE 50 MG TABLET NG SCH ×2 (08:12→21:00)
[2020-03-19] MEDS: FAMOTIDINE PF 20 MG/2 ML VIAL IVP SCH ×3 (08:18→22:49)
[2020-03-19] MEDS ORDERED: FAMOTIDINE PF 20 MG/2 ML VIAL ONE (08:20)
[2020-03-19] MEDS: INSULIN GLARGINE 100 UNITS/ML 10 ML VIAL SUBCUT SCH (08:25)
[2020-03-19] MEDS ORDERED: LEVOFLOXACIN 250 MG/D5W 100 ML IV SCH (10:00)
--- NOTE | 2020-03-19 10:40 | NUR ---
MD Griffin paged.
--- NOTE | 2020-03-19 11:05 | NUR ---
MD Griffin called back, informed 02 saturation is in the 60s to 70s and endorsed by shift production supervisor nurse 02 saturation was never above 80s, informed latest ABGs and Calcium on labs 5.9, potassium 3.3. New order to increase peep to 14, 1 gram calcium gluconate IVPB, Kayexalate 40 mEq through NGT. Orders placed. Addendum: 03/19/20 at 1114 by Joanie Cabrera RN MD Griffin also ordered phosphorous lab, orders placed.
--- NOTE | 2020-03-19 11:15 | NUR ---
Kole Hou called and requested update and requested to visit patient. supervisor quilting approved to visit patient now with 2 minimum. Kole Hou requesting if sister who is receiving chemotherapy able to see patient, informed not advisable and Savi agreed. Savi stated coming now.
[2020-03-19] MEDS ORDERED: NOREPINEPHRINE BITARTRATE 16 MG in NS 234 ML IV PRN (12:00)
[2020-03-19] MEDS ORDERED: CALCIUM GLUCONATE 1 GM in NS 100 ML IV ONE (12:00)
--- NOTE | 2020-03-19 12:00 | NUR ---
INCREASED PEEP TO +14 PER VERMANI.
--- NOTE | 2020-03-19 12:10 | NUR ---
Daughter Ysabel assessing patient from a distance to say final goodbye.
--- NOTE | 2020-03-19 12:33 | NUR ---
Daughter Ysabel and Savi present at hospital, stated they want patient to be disconnected from life support. MD Griffin pageyumiko.
[2020-03-19 13:06] LABS: BASOPHILS % (AUTO) 0.1 % (0.0-2.0); EOSINOPHILS % (AUTO) 0.3 % (0.0-4.0); HEMATOCRIT 34.2 % (36-48); HEMOGLOBIN 11.4 g/dL (12.0-16.0); LYMPHOCYTES # (AUTO) 0.3 K/uL (1.0-5.5); MEAN CORPUSCULAR HEMOGLOBIN 31 pg (27-31); MEAN CORPUSCULAR HGB CONC 33 % (32-36); MEAN CORPUSCULAR VOLUME 93 fL (79.0-98.0); NEUTROPHILS # (AUTO) 1.2 K/uL (1.8-7.7); NEUTROPHILS % (AUTO) 78.6 % (40.0-70.0); RED CELL DISTRIBUTION WIDTH 15.2 % (9.0-15.0)
[2020-03-19 13:11] LABS: WHITE BLOOD COUNT (AUTO) 1.6 K/uL (4.8-10.8)
[2020-03-19 13:52] LABS: PLATELET COUNT (AUTO) 14 K/uL (130-430)
--- NOTE | 2020-03-19 15:37 | NUR ---
Nutrition F/U RD reviewed pt's current EMR record including diet hx, MD notes, RN notes, pertinent labs/meds/procedures, care trends, and care activity. Admitting Diagnosis: Septic shock, respiratory failure, COVID Medical History Comment: PMH: HTN, DM, hypothyroidism, dementia per physician notes Pt also found w/ ARF per physician notes SARS-CoV-2 Ag (Rapid) Negative 02/27, SARS-CoV-2 (PCR) 02/28 Positive Subjective Information: Per EMR review, pt's family would like pt disconnected from life support, and physician was contacted per nursing notes. Pt noted as NPO as well. Pt is s/p code blue yesterday. Pt had ST swallow re-eval 03/[address] reported pt had no significant changes since previous swallow eval 03/10. Current Diet Order/Nutrition Support: Glucerna 1.5 at at 35 ml/hr w/ Banatrol BID, Free Water Flush: 200ml q6h per physician via NGT x9 days -- not infusing per nursing notes Pertinent Medications: Reviewed Pertinent Labs: Reviewed Skin Integrity Comment: Jeovany scale: 12; Per Road Mender note 03/03: no PIs noted Estimated Energy Expenditure (kcals/day) 1172-0125 kcal/day (25-30 kcal/kg CBW for sepsis, acute state) Estimated Protein Required (g/day) 54-65 gm/day (1-1.2 gm/kg CBW for ARF, sepsis, geriatric status) Estimated Fluid Required (l/day) Per physician d/t ARF Problem/Etiology/Signs/Symptoms Increased nutritional needs related to metabolic demands as evidenced by estimated nutritional requirements for sepsis and acute state. *ongoing Altered nutrition-related labs related to endocrine dysfunction as evidenced by elevated BG lab values. *ongoing Complicated GI function related to compromised GI as evidenced by multiple bouts of diarrhea per nursing report. *ongoing Expected Outcomes/Goals - Monitor tolerance of EN support w/ goal of pt meeting at least 75% of estimated nutritional needs, labs trending WNL, normal GI function, and skin integrity/wt maintenance Dietitian Recommendations * Recommend D/C active TF order and implement NPO order Follow Up High Risk: F/U in 2-3 days
--- NOTE | 2020-03-19 15:40 | NUR ---
Dietitian Recommendations * Recommend D/C active TF order and implement NPO order LP, RD Please refer to Nutrition F/U for details.
[2020-03-19] MEDS ORDERED: POTASSIUM CHLORIDE 20 MEQ/PKT PACKET PO ONE (15:45)
--- NOTE | 2020-03-19 17:10 | NUR ---
MD Perez at bedside assessing patient, agrees to place patient on comfort measures after discussing with daughters, signs new advance directive. Family is requesting to have family gather at one house first to facetime patient while extubating. Addendum: 03/19/20 at 1939 by Joanie Cabrera RN EXTRA NOTE: MD Perez requesting for morphine drip to be started and extubation can be performed when family is ready. MD Griffin paged to clarify orders.
[2020-03-19] MEDS ORDERED: MORPHINE I.V. DRIP 100 ML IV PRN (17:15)
[2020-03-19] MEDS ORDERED: MORPHINE 4 MG/ML INJ. SYRINGE IVP ONE (17:15)
[2020-03-19] MEDS ORDERED: LORazepam 2 MG/ML VIAL IVP PRN (17:15)
[2020-03-19] MEDS ORDERED: NALOXONE HCL 0.4 MG/ML AMP (NARCAN) IVP PRN (17:15)
[2020-03-19] MEDS ORDERED: MORPHINE I.V. DRIP 100 ML IV ONE (17:25)
--- NOTE | 2020-03-19 17:30 | NUR ---
MD Perez ordered for patient to remain NPO and for blood sugar checks to be discontinued. Orders placed.
--- NOTE | 2020-03-19 18:00 | NUR ---
Informed RT extubation ordered but waiting for patient's family to notify when ready after gathering family members for Ipad.
--- NOTE | 2020-03-19 18:05 | NUR ---
Called MD Griffin, informed MD Perez started comfort measures and agrees patient should be extubated per family wishes, MD Griffin agrees with new orders. MD Griffin ordered patient to be extubated when family is ready.
--- NOTE | 2020-03-19 18:10 | NUR ---
Kole Hou calls to notify family is ready to watch patient to be extubated while viewing on Ipad.
--- NOTE | 2020-03-19 18:15 | NUR ---
Daughter Savi on facetime on Ipad, requesting to wait for another daughter due to emergency.
--- NOTE | 2020-03-19 19:25 | NUR ---
Endorsed report and gave report to oncoming shift nurse. Endorsed to nurse to notify family to verify if still wishes to extubated patient.
--- NOTE | 2020-03-20 02:07 | NUR ---
PRONOUCED BY SHADI BRYSON AND SUSAN JONES RN. FAMILY AWARE OF THE EXPIRATION FAMILY WERE ON IPAD.
--- NOTE | 2020-03-20 02:34 | NUR ---
MDs NOTIFIED OF EXPIRATION DR. KAUFMAN/DR. WOLFF DEVELOPMENT EDITOR [phone] SPOKE WITH VICENTA RECIO [phone] SPOKE WITH SHRUTHI GLASGOW [phone] SPOKE WITH SHRUTHI SAMUEL [phone] SPOKE WITH SHRUTHI
--- NOTE | 2020-03-20 02:56 | NUR ---
[facility] OF . ALL INFORMATION NEEDED PROVIDED. PER ALEXYS HE WILL RELAY PICK-UP TO MORTUARY DRIVERS. NO ETA AVAILABLE AT THIS TIME, PER ALEXYS DRIVERS WILL CALL HOSPITAL WITH ETA. WILL AWAIT CALL BACK.
[2020-03-20 03:45] VITALS: BP_SYST 84
--- NOTE | 2020-03-22 11:27 | NUR ---
Mortuary Phoned [facility], . Patient was not in the system. Phoned patient's daughter, Savi, . [employer] is the mortuary of choice. She thought everything was in order. She has not signed anything. She will contact the mortuary to sign the release as soon as possible. [employer] will be here to get the remains today if the paperwork is signed. Addendum: 03/22/20 at 1500 by Melody Hughes LCSW Spoke with Lea at [employer]. She will follow up to see if the release of remains has been signed. Addendum: 03/22/20 at 1643 by Melody Hughes LCSW Called [facility] again. Left the fax number for the warehouse freight handler for the release of the remains. Will continue to follow up tomorrow.
== END 2020-03-20 05:55 | disposition expired | DRG 870 ==
LOC: SED 15:57 → SIC 18:25 → STU 03-10 23:50 → SMU 03-14 16:44 → STU 03-18 10:13 → SIC 03-18 14:35
PROVIDERS: ADMIT Family Medicine; ATTEND Family Medicine
PROC: 5A1955Z Respiratory Ventilation, Greater than 96 Consecutive Hours (ICD-10-PCS; principal; 2020-02-27)
PROC: 0BH17EZ Insertion of Endotracheal Airway into Trachea, Via Natural or Artificial Opening (ICD-10-PCS; 2020-02-27)
PROC: 30233N1 Transfusion of Nonautologous Red Blood Cells into Peripheral Vein, Percutaneous Approach (ICD-10-PCS; 2020-02-27)
PROC: 06HY33Z Insertion of Infusion Device into Lower Vein, Percutaneous Approach (ICD-10-PCS; 2020-02-27)
PROC: 5A09357 Assistance with Respiratory Ventilation, Less than 24 Consecutive Hours, Continuous Positive Airway Pressure (ICD-10-PCS; 2020-03-06)
PROC: 5A1935Z Respiratory Ventilation, Less than 24 Consecutive Hours (ICD-10-PCS; 2020-03-06)
PROC: 5A1935Z Respiratory Ventilation, Less than 24 Consecutive Hours (ICD-10-PCS; 2020-03-07)
PROC: 5A09357 Assistance with Respiratory Ventilation, Less than 24 Consecutive Hours, Continuous Positive Airway Pressure (ICD-10-PCS; 2020-03-07)
PROC: 5A09357 Assistance with Respiratory Ventilation, Less than 24 Consecutive Hours, Continuous Positive Airway Pressure (ICD-10-PCS; 2020-03-08)
PROC: 5A1935Z Respiratory Ventilation, Less than 24 Consecutive Hours (ICD-10-PCS; 2020-03-08)
PROC: 5A09357 Assistance with Respiratory Ventilation, Less than 24 Consecutive Hours, Continuous Positive Airway Pressure (ICD-10-PCS; 2020-03-09)
PROC: 5A1935Z Respiratory Ventilation, Less than 24 Consecutive Hours (ICD-10-PCS; 2020-03-09)
PROC: 5A12012 Performance of Cardiac Output, Single, Manual (ICD-10-PCS; 2020-03-18)
PROC: 0BH17EZ Insertion of Endotracheal Airway into Trachea, Via Natural or Artificial Opening (ICD-10-PCS; 2020-03-18)
PROC: 5A1945Z Respiratory Ventilation, 24-96 Consecutive Hours (ICD-10-PCS; 2020-03-18)
DX: A41.89 Other specified sepsis (principal); J15.9 Unspecified bacterial pneumonia; R65.21 Severe sepsis with septic shock; B37.1 Pulmonary candidiasis; U07.1 COVID-19; E43 Unspecified severe protein-calorie malnutrition; J69.0 Pneumonitis due to inhalation of food and vomit; J96.01 Acute respiratory failure with hypoxia; B37.49 Other urogenital candidiasis; E87.2 Acidosis; N17.9 Acute kidney failure, unspecified; E87.0 Hyperosmolality and hypernatremia; D64.9 Anemia, unspecified; E03.9 Hypothyroidism, unspecified; X58.XXXA Exposure to other specified factors, initial encounter; E11.9 Type 2 diabetes mellitus without complications; S20.211A Contusion of right front wall of thorax, initial encounter; R00.1 Bradycardia, unspecified; E86.0 Dehydration; E87.5 Hyperkalemia; R74.01 Elevation of levels of liver transaminase levels; E83.51 Hypocalcemia; F03.90 Unspecified dementia, unspecified severity, without behavioral disturbance, psychotic disturbance, mood disturbance, and anxiety; I10 Essential (primary) hypertension; E88.09 Other disorders of plasma-protein metabolism, not elsewhere classified; Y95 Nosocomial condition; Z86.19 Personal history of other infectious and parasitic diseases; Z93.1 Gastrostomy status; Y92.89 Other specified places as the place of occurrence of the external cause; Y93.89 Activity, other specified; Y99.8 Other external cause status; Z91.013 Allergy to seafood
CPT/HCPCS: 36415; 36600; 71045; 80048; 80053; 81000-TC; 82040-TC; 82272; 82550-TC; 82553-TC; 82607; 82728; 82746; 82803-TC; 82962; 83540-TC; 83550-TC; 83605; 83615-TC; 83735-TC; 83880; 84100-TC; 84484; 85007; 85018-TC; 85025; 85027; 85379; 85384-TC; 85610-TC; 85730-TC; 86140; 86886; 86900; 86901; 86920; 87040-TC; 87081; 87086; 87205-TC; 87230-TC; 92610-GN; 92950; 93005; 94002; 94003; 94640; 94760; 96365; 96368; 96375; 99291; J0456; J0610; J0696; J1030; J1100; J1265; J1450; J1815; J1940; J1956; J2060; J2270; J2370; J2543; J2704; J3490; J7030; J7040; J7042; J7050; J7060; P9021; P9046; U0003